=== PATIENT | male | born 1960 | race Caucasian/White ===

== ENCOUNTER 2023-12-13 09:26 | Emergency (ER) | payer OTHER, MEDICARE, SELFPAY ==
[2023-12-13 09:35] VITALS: BP 186/97
--- NOTE | 2023-12-13 11:50 | ED.GENMED ---
History of Present Illness
General
Chief Complaint: Skin Surface Trauma
Source: patient
Exam Limitations: none
Time Seen by Provider: 12/13/23 10:15
Nursing documentation reviewed up to this point in time: agreed with
Travel History
Have you had any contact with someone who has COVID-19?: No
Do you have any symptoms of coronavirus? Fever > 100 degrees, chills, cough, shortness of breath, sore throat, loss of taste or smell, muscle aches, or headache?: No
History of Present Illness
History of Present Illness:
63-year-old presents to the ER for evaluation of laceration to right arm. 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 His tetanus was 3 years ago. He is left-hand dominant. He denies any other
injuries.
Review of Systems
Review of Systems
Allergies reviewed?: Yes
All Other Systems: ROS reviewed and negative except as documented in HPI and ROS
Constitutional: Reports no symptoms; Denies fever, fatigue or chills
EENT: Reports no symptoms
Skin: Reports other (laceration to right arm )
Neurological: Reports no symptoms
Psychiatric: Reports no symptoms
Phy Exam
General Physical Exam
General Presentation: no apparent distress
General age: appears stated age
General Skin: warm and dry
General Habitus: normal
General Mental: alert
General Hydration: appears well hydrated
Neurological Exam
Neurological Exam: alert and oriented x3
Musculoskeletal Exam
Musculoskeletal Exam: other (RUE with strong pulses + v shaped laceration approx 3.5 cm full-thickness into subcutaneous tissue no tendon visible or deficits no bony tenderness no obvious swelling)
Skin Exam
Skin Exam: normal color and warm/dry
Psychiatric Exam
Psychiatric Exam: normal mood/affect
Course
Vital Signs
Initial and Last Documented VS:
Initial Vital Signs
Temp Pulse Resp BP Pulse Ox
98.7 F 85 17 186/97 99
12/13/23 09:35 12/13/23 09:35 12/13/23 09:35 12/13/23 09:35 12/13/23 09:35
Last Documented Vital Signs
Temp Pulse Resp BP Pulse Ox
98.7 F 85 17 186/97 99
12/13/23 09:35 12/13/23 09:35 12/13/23 09:35 12/13/23 09:35 12/13/23 09:35
Procedures
Laceration Closure
Right Dorsal Arm:
Status of Wound: clean
Size of Wound in cm: 3.5
Description of Wound Edges: flap-well vascularized
Preparation: cleaned with saline
Anesthesia: 1% Lidocaine with epi
Revision/Debridement: routine- no revision
Type of Closure: single layer closure and interrupted sutures
Skin Closure Material: 4-0 nylon
Number of sutures: 10
MDM/Problems Addressed
Differential Diagnosis Includes:
Not limited to laceration, tendon injury
MDM/Problems Addressed:
Patient with simple laceration as documented to dorsal aspect of right arm sutured as documented. No tendon deficit no bony tenderness tetanus up-to-date wound care reviewed.
*Critical Care Note
Total Time (30-74mins, 75-104mins- exclusive of procedures): Not Applicable
ED Attending Note
-
Portions of this chart may have been created with voice recognition software.� Occasional wrong word or��sound alike� substitutions may have occurred due to the inherent limitations of voice recognition software.
Discharge Plan
Departure
Patient Disposition: Home (Routine Discharge)
Date of Disposition: 12/13/23
Time of Disposition: 11:53
Patient with high blood pressure during this ER visit?: Yes
Covid-19: Not Applicable
Discharge Problem:
Laceration
Instructions: Laceration Repair With Stitches (DC), BLOOD PRESSURE
Referrals:
Karan Prescott MD [Family Provider] -
Activity Restrictions/Additional Instructions:
Keep wound clean and dry for 24 hours after 24 hours wash twice a day with soap and water apply antibiotic ointment to the area twice daily keep covered. See family doctor in the next 2 days as needed for wound check. Return if any signs
infection increased pain swelling redness drainage fever chills red streaking. Follow-up with family doctor for suture removal in 10 days.
Interventions
Interventions:
*Risk Screen - Suicide Last Done: 12/13/23 09:36
*General Assessment Last Done: 12/13/23 09:36
*Neglect/Abuse Screening Last Done: 12/13/23 09:36
*ED COVID-19 Vaccine History Last Done: 12/13/23 09:36
[2023-12-13 12:16] VITALS: BP 168/74
== END 2023-12-13 12:17 | disposition home or self-care (01) ==
LOC: EMR 09:26
PROVIDERS: EMERGENCY PHYSICIAN Emergency Medicine; FAMILY PHYSICIAN Family Medicine
DX: S41.111A Laceration without foreign body of right upper arm, initial encounter (principal); W45.8XXA Other foreign body or object entering through skin, initial encounter
CPT/HCPCS: 99282; 12002

== ENCOUNTER 2025-06-01 16:54 | Inpatient (IN) | payer OTHER, MEDICARE, SELFPAY ==
[2025-06-01] VITALS (22 sets, daily range): BP systolic 81–176; BP diastolic 66–108; BMI 26.5
--- NOTE | 2025-06-01 14:40 | ED.GENMED ---
History of Present Illness
General
Chief Complaint: Chest Pain
Source: patient
Time Seen by Provider: 06/01/25 14:35
History of Present Illness
History of Present Illness:
64-year-old male presents to the emergency room complaining of a tightness in his chest. Patient has been experiencing this on and off for the past 3 to 4 days. He went to his primary care doctor's office today where they obtained a EKG which they
said was markedly different than his old EKG. Patient states the discomfort seems to come and go without regard to activity. He had stronger discomfort earlier today. Patient does have multiple cardiac risk factors including smoking a pack a day,
hypercholesterolemia, hypertension and diabetes. Patient had some sweating last night which may or may not have been related to his chest discomfort. Otherwise no shortness of breath.
Phy Exam
Physical Exam
Physical Exam:
General: Awake, Alert, Oriented X3. No acute distress.
Vitals: Hypertensive
Head: Atraumatic
Eyes: Pupils equal, EOMI
Throat: Airway intact, no exudates
Neck: Trachea midline
Lungs: Clear and equal b/l
Heart: Regular rate, no murmurs
Abd: Soft, Nontender, No pulsatile mass
Neuro: Nonfocal
Skin: Warm, dry, no rash
Extremities: pulses equal b/l, no edema
Scores
Heart Score for Chest Pain Patients
STEMI patient?: No
History: Highly Suspicious
ECG: Significant ST-Depression
Age: >/= 65 years
Risk Factors: >/= 3 Risk Factors or History of CAD
Troponin: >/= 3 x Normal Limit
Heart Score for Chest Pain Patients: 10
Heart Score Risk: 72.7 % MACE over next 6 weeks
Course
Orders/Labs/Results
Orders:
Orders
06/01/25 14:18
EKG [Electrocardiogram (*1)] Urgent
Reason for Study: Chest Pain
EKG- Treatment ONCE
06/01/25 14:35
Nitroglycerin Sublingual [Nitrostat (Sublingual)] 0.4 mg SL NOW STA
06/01/25 14:42
Complete Blood Count/With Diff Urgent
Comprehensive Metabolic Panel Urgent
Troponin I Urgent
06/01/25 14:45
Heparin 4,000 units IV NOW STA
Heparin 31720 Units/250 ml 25,000 units in 250 ml IV PER PROTOCOL
Weight to be used for heparin protocol in kilograms (kg):: 74.5
Protocol:: Cardiac Tx/Acute Coronary
PTT Goal Range to be used:: PTT 73 to 111 seconds
Order type:: Initial
INITIAL Infusion Dose (UNITS/KG/hr) & then follow protocol:: 15 units/kg/hr
Infusion Dose in UNITS/hr & then follow protocol (UNITS/hr):: 1,100
INFUSION RATE in mL/hr & then follow protocol (mL/hr):: 11
PTT less than or equal to 64 seconds:: Increase rate by 200 units/hr (+ 2 mL/hr)
PTT 64.1 to 72.9 seconds:: Increase rate by 100 units/hr (+ 1 mL/hr)
PTT 73 to 111 seconds:: Target Range. No change in rate.
PTT 111.1 to 130.9 seconds:: Decrease rate by 100 units/hr (- 1 mL/hr)
PTT 131 to 199.9 seconds:: HOLD for 1 hr. Then decrease rate by 200 units/hr (- 2 mL/hr)
PTT greater than or equal to 200 seconds:: HOLD for 2 hrs & Notify Provider. Then decrease by 200 units/hr (-
2 mL/hr)
Lab follow-up:: Each change, PTT q6h until 2 consecutive are therapeutic. Then PTT
daily.
06/01/25 14:[address] Non Medication Order As Directed
Physician Order: PTT 6 hours after initial start of Heparin infusion
Above order entered?: Yes
06/01/25 14:50
PTT Urgent
Comment: Obtain baseline before beginning heparin infusion if not already collected
06/01/25 15:14
CR Chest Portable - 1 View Urgent
Comment:
Reason For Exam: chest pain
Reason Study Needs to be Portable: Patient Unstable
06/01/25 15:45
Admit/Transfer Patient As Directed
Co-Sign Provider:
Level of Care: Inpatient admission
Assign to:: IVU
Physician / Group: Dr. Valentin
Diagnosis: NSTEMI
Reason for Hospitalization: NSTEMI
Expected length of stay greater than two midnights?: Yes
ELOS- Estimated Length of Stay in days: 3
I certify the patient meets the requirements for IP care: Yes
06/01/25 15:47
Code Status As Directed
Resuscitation Status: Full Code
06/01/25 21:15
PTT Routine
Abnormal Lab Results
06/01/25
14:42
MCH 31.5 H pg
(27.0-31.0)
Absolute Monos (auto) 0.7 H 10^3/uL
(0.1-0.6)
Glucose 113 H mg/dl
(70-99)
Troponin I 4.940 H* ng/ml
06/01/25 14:42
06/01/25 14:42
Vital Signs
Initial and Last Documented VS:
Initial Vital Signs
Temp Pulse Resp BP Pulse Ox
98.4 F 78 20 166/96 100
06/01/25 14:18 06/01/25 14:18 06/01/25 14:18 06/01/25 14:18 06/01/25 14:18
Last Documented Vital Signs
Temp Pulse Resp BP Pulse Ox
98 F 59 16 99/66 98
06/01/25 14:46 06/01/25 15:07 06/01/25 15:07 06/01/25 15:07 06/01/25 15:01
MDM/Problems Addressed
Differential Diagnosis Includes:
STEMI, NSTEMI, unstable angina
MDM/Problems Addressed:
Patient presents with intermittent chest pressure that been occurring over the past 3 days. Patient in a more severe episode of chest discomfort earlier today. Currently rates his pain 3 out of 10. Patient's EKG shows significant ST changes
though not quite STEMI criteria. Patient had taken 325 mg of aspirin earlier this morning. He was given a sublingual nitro which caused a vagal response and hypotensive in the diaphoresis. Patient given a bolus of IV fluid and he improved over
the course of a few minutes. Heparin started. I contacted cardiology. Dr. Márquez came to the emergency room promptly to evaluate the patient. He has contacted Dr. Sanches to arrange for an urgent cardiac catheterization.
Acute Exacerbation and/or Progression of Chronic Illness: DM and HTN
*Pulse Oximetry
SaO2: 100
Oxygen Mode of Delivery: Room air
Patient hypoxic: not evaluated
*EKG
Interpreted by ED Provider?: Yes
Interpretation: abnormal
Comparison EKG: no comparison EKG present
Heart Rate: 73
Rate: normal
Rhythm: sinus
Ischemia: other (Biphasic T waves V3, V4, V5, T wave inversion in aVR)
*Basket Hand Weaver Interpretation
Rate: normal
Interpretation: normal
Rhythm: sinus
*Critical Care Note
Total Time (30-74mins, 75-104mins- exclusive of procedures): 37 min
ED Attending Note
-
Portions of this chart may have been created with voice recognition software.� Occasional wrong word or��sound alike� substitutions may have occurred due to the inherent limitations of voice recognition software.
Discharge Plan
Departure
Patient Disposition: Admit
Date of Disposition: 06/01/25
Time of Disposition: 15:10
Admit to: [facility]
Presentation/result/management discussed w/ accepting MD/DO: Dr. Galvan
Condition: Serious
Discharge Problem:
Non-ST elevation DC (NSTEMI)
Prescriptions:
No Action
metformin 500 mg Tablet
500 mg PO DAILY
tramadol 50 mg Tablet
100 mg PO Q6HPRN PRN (Reason: moderate pains)
ezetimibe [Zetia] 10 mg Tablet
10 mg PO DAILY
hydrochlorothiazide 12.5 mg Tablet
12.5 mg PO DAILY
Interventions
Interventions:
*Risk Screen - Suicide Last Done: 06/01/25 14:18
*General Assessment Last Done: 06/01/25 15:00
*Neglect/Abuse Screening Last Done: 06/01/25 14:18
*ED- Fall Risk Assessment Last Done: 06/01/25 14:46
*ED COVID-19 Vaccine History Last Done: 06/01/25 14:46
ED- Cardiac Assessment Last Done: 06/01/25 14:47
Discharge Date and Time
Print Language: OCCITAN
[2025-06-01] MEDS: NITROSTAT (SUBLINGUAL) 0.4 MG SL (14:54)
[2025-06-01 15:01] LABS: Hematocrit 43.3 % (39.0-52.0); Hemoglobin 15.1 g/dL (13.0-18.0); Mean Corp Hgb Conc. 34.9 g/dL (33.0-37.0); Mean Corpuscular Volume 90.4 fL (80.0-94.0); Nucleated Red Blood Cells % 0 % (-); Platelet Count 288 10^3/uL (130-400); Red Cell Dist. Width 12.8 % (11.5-14.5)
[2025-06-01 15:08] LABS: ALT (SGPT) 29 U/L (0-50); AST (SGOT) 51 U/L (17-59); Albumin 4.9 g/dl (3.5-5.0); Alkaline Phosphatase 72 U/L (38-126); Blood Urea Nitrogen 16 mg/dl (9-20); Calcium 9.5 mg/dl (8.4-10.2); Carbon Dioxide 28 mmol/L (22-30); Chloride 106 mmol/L (98-107); Estimated Creatinine Clearance 66 ml/min; Glucose 113 mg/dl (70-99); Potassium 4.1 mmol/L (3.5-5.1); Sodium 138 mmol/L (135-145); Total Protein 8.0 g/dl (6.3-8.2); eGFR > 60.00
[2025-06-01 15:11] LABS: APTT 30.0 Sec (23.4-35.0)
[2025-06-01] MEDS: HEPARIN 4000 UNITS IV (15:13)
[2025-06-01] MEDS: HEPARIN 25000 UNITS/250 ML IV (15:14)
[2025-06-01 15:38] LABS: Troponin I 4.940 ng/ml
--- NOTE | 2025-06-01 16:06 | HPS.HSE ---
Addendum entered and electronically signed by Ousmane Valentin MD 06/01/25 17:48:
Patient seen and examined in collaboration with TOLL COLLECTOR SUPERVISOR; agree with below.
- 64-year-old male with hypertension, hyperlipidemia, diabetes, and chronic continued cigarette use, and family history of CAD presenting with acute chest pain with anterior T wave abnormality.
- Patient's presentation is consistent with ACS; cardiac enzymes just resulted, and patient has a troponin of 4.8--NSTEMI.
- The patient will undergo urgent cardiac catheterization today.
- Heparin bolus and heparin drip being initiated in the ER.
- Patient has received full-dose aspirin.
- The patient had a vasovagal event after receiving nitroglycerin; will hold an additional nitroglycerin.
- Case discussed with Interventional Cardiology.
- Patient will be admitted to the cardiology service.
- Check lipid panel and hemoglobin A1c in the a.m.
Original Note:
Family Physician
-
Family Physician: Dr. Prescott
Chief Complaint
-
chest pain
History of Present Illness
64 y/o male with HTN, HLD, preDM, and smoking who is here for intermittent chest pressure for 3 days. In the ER he had chest pressure, which resolved with nitro, but nitro resulted in vagal response with BP drop. IVF given. His troponin was 4.94.
EKG is abnormal with anterior ST/T abnormality.
Medical History
Past Medical History
Past Medical History: Reports HTN, Hypercholesterolemia and Other (as above)
Past Surgical History: Reports None
Social History
Tobacco: Smoker (1 PPPD)
Personal:
Living: With Family
Family History
Family History: CAD (dad stents around this age)
Allergies / Home Medications
Allergies reflects when Allergies were last updated in [facility].
Home Medications with original date entered in [facility]
Allergy/Medication List:
Allergies:
none known
Medications:
-zetia 10 mg PO daily
-HCTZ 12.5 mg PO daily
-metformin 500 mg PO daily
-tramadol 100 mg PO Q6 HPRN
Review of Systems
-
History Source: Patient
A 12 point ROS was completed and negative except as noted: Yes
Cardiac: Reports Chest Pain
Physical Exam
Vital Signs
Vital Signs
Temp Pulse Resp BP Pulse Ox
98 F 59 16 99/66 98
06/01/25 14:46 06/01/25 15:07 06/01/25 15:07 06/01/25 15:07 06/01/25 15:01
Physical Exam
General: Well Developed, Well Nourished and No Apparent Distress
HEENT: NormoCephalic and Anicteric
Respiratory: Clear and Non Labored Respirations
Cardiac: Regular Rhythm
Skin: Warm and Dry
Neuro: AO x 3
Psych: Calm
Laboratory Results
-
06/01/25 14:42
06/01/25 14:42
Laboratory Results
APTT 30.0 Sec (23.4-35.0) 06/01/25 14:50
Total Bilirubin 0.7 mg/dl (0.2-1.3) 06/01/25 14:42
AST 51 U/L (17-59) 06/01/25 14:42
ALT 29 U/L (0-50) 06/01/25 14:42
Alkaline Phosphatase 72 U/L (38-126) 06/01/25 14:42
Troponin I 4.940 ng/ml H* 06/01/25 14:42
Data Reviewed
-
Medical Tests (Nuc Med, Echo, EKG etc): Image Personally Visualized and interpreted (SR with anteruir ST/T abnormalities) and Other (echo is ordered)
Lab Data: Labs Reviewed by me
Impression/Plan
-
IMPRESSION/PLAN:
NSTEMI:
-this diagnosis is threat to life
-IV heparin, which requires intensive monitoring
-CP free presently. greens laborer today- discussed with patient.
-He took full dose aspirin this AM- continue daily aspirin
-add statin
-follow EKGs and troponins
-check lipids and hgbA1C
-obtain echo
HTN:
-continue home meds and monitor
HLD:
-had issue with simvastatin in the past, back pain. Willing to retrial statin. Will add Crestor. Can continue his usual Zetia. Check lipids.
Smoking:
-we reviewed that he requires total cessation
PreDM:
-hold metformin for cath
-check hgb A1C
Chronic neck pain:
-continue PRN tramadol
--- NOTE | 2025-06-01 16:14 | CM ---
Patient seen at bedside in ED. Per nursing patient for cardiac cath today. Patient states that he lives with his and daughter in a 2 story home. Patient stated that he does not have any DME and his PCP is Dr. Prescott. Patient uses [facility] in
[place] for pharmacy needs. Patient plan is to go home with no needs. CM will continue to follow for discharge planning needs.
Plan; home with no needs watch for VN needs.
[2025-06-01 18:30] LABS: ACT-LR - POC 322 Seconds (116-155)
--- NOTE | 2025-06-01 18:55 | ITS.CL.ANGIO ---
Software Client Architect - Angioplasty
Angioplasty
Procedure Report:
CARDIAC CATHETERIZATION REPORT
Date of Procedure: 06/01/2025
Referring: Ousmane Valentin M.D.
INDICATION: Non-ST elevation myocardial infarction.
PROCEDURE:
1. Left heart catheterization.
2. Coronary angiography.
3. Successful IVUS guided PCI of the mid and distal LAD.
4. Successful PCI of the distal circumflex.
A total of 87 minutes of procedural/moderate sedation was utilized. An independent medical supply technician was present to assist with and help manage the patient's level of consciousness and physiologic status.
ACCESS:
1. 6 [place] right rate artery using a modified Seldinger technique.
CATHETERS:
1. 5 [place] JR4.
2. 5 [place] JL 3.5.
3. 6 [place] EBU 3.5 guiding catheter.
HEMODYNAMIC DATA
Weight (kg): 74.4
AO (s/d/x, mmHg): 118/71/90
LV (s/x mmHg): 118/5
LEFT VENTRICULOGRAPHY: Not performed.
CORONARY ANGIOGRAPHY
Dominance: Right.
Left Main: Normal size, bifurcating vessel. There is no coronary artery disease.
LAD: Smaller size vessel giving rise to 2 small diagonals. There is some atherosclerotic burden in the ostium of the vessel. There is a 70% lesion in the mid LAD after the origin of the master septal. There is a group of 90% lesions spanning
the origin of the second diagonal leading into a small terminal LAD.
Ramus: Congenitally absent.
Circumflex: Large size, nondominant vessel giving rise to 1 large obtuse marginal before terminating as a left posterolateral arcade. There is a 60% lesion in the distal circumflex immediately after the origin of the obtuse marginal. There is an
underappreciated 70-80% lesion distal to that first lesion but proximal to the posterolateral arcade.
RCA: Large size, dominant vessel with a large RPDA system and posterolateral arcade. The RPDA supplies the majority of the inferior wall and inferior septum as well as the apex. There are tandem 70-80% lesions in the proximal RCA and mid RCA.
INTERVENTION(S)
1. Successful IVUS guided PCI of the group of 90% distal LAD lesions and the 70% mid LAD lesion (overlapping Medtronic [place] Thayer 2.25 x 34 KRISS and 2.5 x 22 KRISS, postdilated with a 2.25 NC balloon throughout, a 2.5 NC balloon throughout and a
3.0 x 12 NC balloon in the proximal margin) with reduction in stenoses to 0%, maintaining EMILY-3 flow.
2. Successful PCI of the tandem 60% and 70-80% distal circumflex lesions (Medtronic [place] Thayer 3.0 x 34 KRISS, postdilated with a 3.0 NC balloon) with reduction in stenoses to 0%, maintaining EMILY-3 flow.
Narrative:
After thoughtful and thorough discussion with interventional colleagues as well as CT surgery, the decision was made to proceed with percutaneous coronary intervention as there was deemed to be no benefit to a ENRIQUEZ graft given the small size of the
LAD and corresponding territory. The diagnostic catheter was removed over a wire and a 6Fr EBU 3.5 guiding catheter was advanced to the aortic root and seated in the left main coronary artery. Additional heparin was given and a Power Turn Flex wire
was advanced into the distal LAD. The group of 90% lesions were predilated with a 2.0 x 12 semi-compliant balloon to 12 randy. The semi-compliant balloon was removed and a Medtronic [place] Thayer 2.25 x 34 drug-eluting stent was advanced. The stent
was deployed at 12 atmospheres. The stent balloon was removed.
We then turned our attention to the mid LAD lesion. A Medtronic [place] Thayer 2.5 x 22 drug-eluting stent was advanced. Meticulous care was taken while positioning the stent, ensuring that the distal aspect overlapped with the recently placed
stent in the proximal margin cover the entire mid LAD lesion. We were satisfied with our position. The stent was deployed at 12 randy. The stent balloon was withdrawn.
The decision was made to perform intracoronary imaging. An IVUS catheter was advanced through the guiding catheter and into the ostium of the artery. Ring down was performed once the imaging crystal was no longer inside of the guiding catheter. The
IVUS catheter was advanced into the distal LAD, beyond the stented segment. Intravascular ultrasound was performed in a retrograde fashion using a slow pullback. Intracoronary imaging demonstrated diffuse atherosclerotic disease throughout the
entire coronary tree including underappreciated proximal and ostial LAD disease, though not culprit. Vessel measurements including stent measurements were obtained. IVUS confirmed stent apposition throughout the entire segment with some
underexpansion.
The IVUS catheter was withdrawn. A 2.25 x 20 noncompliant balloon was advanced into the distal stent and the entire stent length was was postdilated to 16 atmospheres, 18 randy in the proximal margin. The noncompliant balloon was withdrawn and a 2.5
x 20 noncompliant balloon was advanced. The mid and proximal portions of the stent were postdilated to 12 randy and 14 randy respectively. The noncompliant balloon was withdrawn. A 3.0 x 12 noncompliant balloon was advanced. The proximal margin of
the stented segment was dilated to 12 randy. The noncompliant balloon was withdrawn and IVUS was repeated. This demonstrated excellent stent apposition and improved expansion throughout the entire stented segment.
We then turned our attention to the left circumflex. The power turn flex wire was withdrawn and redirected into the distal circumflex. The distal circumflex lesions were both dilated with the 2.5 x 20 noncompliant balloon. A Medtronic [place]esar
Thayer 3.0 x 34 drug-eluting stent was advanced. Angiography confirmed that the stent would cover both lesions and was deployed at 12 randy. The stent balloon was withdrawn and a 3.0 x 12 noncompliant balloon was advanced. The entire stented
segment was postdilated to 12 randy, 14 randy in the proximal margin. The noncompliant balloon was withdrawn.
Angiography was performed in orthogonal views, confirming good stent expansion throughout. There was an area of radiolucency and haziness in the proximal LAD stent margin that was not previously appreciated. The decision was made to repeat IVUS in
this area. The power turn flex wire was withdrawn from the left circumflex and redirected into the LAD. The IVUS catheter was readvanced and IVUS was performed in the questionable area. IVUS demonstrated no evidence of dissection or plaque
disruption. The area of haziness appeared to be related to a piece of calcium on the lateral aspect of the vessel and did not represent intimal disruption.
The IVUS catheter was withdrawn. Nitroglycerin 100 mcg was given intracoronary. Repeat angiography was performed, demonstrating good stent expansion and apposition throughout the entire stented segments with an excellent angiographic result.
The coronary wire was withdrawn and the guide was disengaged from the artery. The catheter was removed over a standard J-wire.
Closure Device: Vascular band.
Radiation (mGy): 823
DAP (cm2.Gy): 32.7
Fluoroscopy time (minutes): 19.3
CONCLUSIONS
1. Right dominant circulation with severe, multivessel disease including tandem 70-80% lesions in the proximal and mid RCA, a 60% lesion in the distal circumflex followed by an underappreciated 70-80% lesion in the distal circumflex, a 70% mid LAD
lesion and a group of 90% lesions spanning the origin of the second diagonal and leading into a small, terminal LAD, not a candidate for surgical revascularization, status post successful IVUS guided PCI of the mid and distal LAD lesions
(overlapping Medtronic [place] Thayer 2.25 x 34 KRISS, 2.5 x 22 KRISS, postdilated with a 2.25 and 2.5 NC balloon throughout and a 3.0 x 12 NC balloon in the proximal margin) and successful PCI of the tandem distal circumflex lesions (Medtronic [place]
Thayer 3.0 x 34 KRISS, postdilated with a 3.0 NC balloon) with reduction in stenoses to 0%, maintaining EMILY-3 flow.
2. Normal filling pressures (LVEDP = 5 mmHg at 74.4 kg).
RECOMMENDATIONS:
1. Expectant management after cardiac catheterization via right radial approach.
2. Limited weight bearing on the right wrist for one week.
3. Dual antiplatelet therapy with aspirin and ticagrelor for at least 12 months, followed by aspirin indefinitely.
4. Plan for staged PCI of the proximal and mid right coronary artery lesions.
5. OMT/GDMT as hemodynamics will tolerate.
6. Aggressive secondary prevention with high-dose, high potency statin. Goal LDL <55.
7. Echocardiogram ordered and pending.
8. Referral to cardiac rehab, though this may be deferred until his revascularization is complete.
Copy to: Karan Prescott M.D., Ousmane Valentin M.D.
Tl Boss DO, FACC, FACP
[2025-06-01 19:37] LABS: Troponin I 3.160 ng/ml
[2025-06-01] MEDS: CRESTOR 20 MG PO (20:37)
[2025-06-01 21:23] LABS: Glucose - Point of Care 125 mg/dl (70-99)
[2025-06-01 23:50] LABS: Troponin I 3.610 ng/ml
--- NOTE | 2025-06-02 01:21 | PTCARENOTE ---
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 Pt AAOx3, VSS-- NSR/SB on monitor. Denies c/p @ this time. Right radial band intact w/ 8 mL of air. Site clean, dry, and intact. Little ecchymosis present, no hematoma. Radial band removed per protocol with no
issues-- see MAR. Discussed plan of care for evening. Pt verbalizes understanding. Call ty within reach.
[2025-06-02 05:08] VITALS: BP 132/71
[2025-06-02 05:30] LABS: Hematocrit 37.8 % (39.0-52.0); Hemoglobin 13.4 g/dL (13.0-18.0); Mean Corp Hgb Conc. 35.4 g/dL (33.0-37.0); Mean Corpuscular Volume 89.4 fL (80.0-94.0); Platelet Count 251 10^3/uL (130-400); Red Cell Dist. Width 13.1 % (11.5-14.5)
[2025-06-02 05:55] LABS: Blood Urea Nitrogen 16 mg/dl (9-20); Calcium 8.8 mg/dl (8.4-10.2); Carbon Dioxide 24 mmol/L (22-30); Chloride 107 mmol/L (98-107); Estimated Creatinine Clearance 73 ml/min; Glucose 133 mg/dl (70-99); HDL Cholesterol 35 mg/dl; LDL Cholesterol, Calculated 182 mg/dl; Potassium 3.9 mmol/L (3.5-5.1); Sodium 137 mmol/L (135-145); Very Low Density Lipoprotein 47 mg/dl (0-30); eGFR > 60.00
[2025-06-02 06:14] LABS: Troponin I 3.450 ng/ml
[2025-06-02 06:56] VITALS: BP 129/78
[2025-06-02 07:39] LABS: Glucose - Point of Care 147 mg/dl (70-99)
[2025-06-02 07:40] LABS: Glycohemoglobin (HgbA1c) 6.2 % (4.0-5.6)
--- NOTE | 2025-06-02 08:45 | W.PN.CD ---
Today's Communication / Plan
-
DAPT.
Echo.
Rosuvastatin 20 mg daily. Goal LDL < 55.
Resume metformin tomorrow.
Plan for staged PCI of RCA (mid-June).
Impression / Plan
-
Impression/Plan: 64 y/o male with HTN, HLD, NIDDM and tobacco abuse admitted with NSTEMI.
#CAD/NSTEMI
-Acute/threat to life.
-Troponin peaked at 4.9.
-Small LAD without options for surgical revascularization prompted percutaneous approach. Discussed with surgery prior to PCI.
-S/P IVUS guided PCI of culprit dLAD and mLAD (overlapping Medtronic [place] Bibb 2.25 x 34 KRISS, 2.5 x 22 KRISS, post dilated with 2.25 NCB throughout, 2.5 NCB in the mid/proximal stent and 3.0 x 12 NCB in the proximal margin) with reduction in
stenosis to 0%, maintaining EMILY III flow.
-S/P PCI of tandem 60-70% and 80% dLCx lesions (Medtronic Cesar Bibb 3.0 x 34 KRISS, post dilated with 3.0 NCB) with reduction in stenosis to 0%, maintaining EMILY III flow.
-Residual proximal LAD disease (likely non-obstructive) and obstructive proximal/mid RCA disease remain. Staged PCI of RCA planned.f
-Maintain DAPT with aspirin and ticagrelor for at least 12 months.
-Echocardiogram pending.
-OMT/GDMT as hemodynamics will tolerate.
-Secondary prevention with high dose, high potency statin. Goal LDL < 55.
#HTN
-Chrnoic, stable.
-Resume HCTZ.
-BP medication modification based on echo results.
#HLD
-Chronic.
-Total cholesterol = 264, LDL = 182, HDL = 35, Triglycerides = 237.
-Rosuvastatin 20 mg daily. Goal LDL < 55. Goal triglycerides < 150.
#NIDDM2
-Chronic.
-HbA1c pending.
-Resume metformin tomorrow
-There is a role for GLP1 analogs at discharge (DM + ASCVD).
#Tobacco abuse
-Chronic.
-Encouraged absolute abstinence.
#PPx
-Ambulation/SCD's for DVT/VTE.
-No role for PPI at this time.
#Dispo
-IVU status.
-Full code.
-Begin discharge planning (likely tomorrow) with intent to return to general production laborer for staged PCI of RCA as an outpatient.
Subjective/Interval History:
S/P PCI of culprit LAD, non-culprit LCx yestserday.
No chest pain overnight.
Feels well.
DATA:
Cardiac Catheterization/PCI, 06/01/2025:
CONCLUSIONS
1. Right dominant circulation with severe, multivessel disease including tandem 70-80% lesions in the proximal and mid RCA, a 60% lesion in the distal circumflex followed by an underappreciated 70-80% lesion in the distal circumflex, a 70% mid LAD
lesion and a group of 90% lesions spanning the origin of the second diagonal and leading into a small, terminal LAD, not a candidate for surgical revascularization, status post successful IVUS guided PCI of the mid and distal LAD lesions
(overlapping Medtronic Her[place] Bibb 2.25 x 34 KRISS, 2.5 x 22 KRISS, postdilated with a 2.25 and 2.5 NC balloon throughout and a 3.0 x 12 NC balloon in the proximal margin) and successful PCI of the tandem distal circumflex lesions (Medtronic Cesar
Bibb 3.0 x 34 KRISS, postdilated with a 3.0 NC balloon) with reduction in stenoses to 0%, maintaining EMILY-3 flow.
2. Normal filling pressures (LVEDP = 5 mmHg at 74.4 kg).
Physical Exam
Vital Signs/Labs
Vital Signs
Temp Pulse Resp BP Pulse Ox
37.1 C 61 18 129/78 95
06/02/25 06:56 06/02/25 07:15 06/02/25 06:56 06/02/25 06:56 06/02/25 08:27
05/31/25 06/01/25 06/02/25
11:59 11:59 11:59
Actual Weight 74.5 kg
06/02/25 05:15
06/02/25 05:15
APTT Cancelled 06/01/25 23:00
Triglycerides 237 mg/dl (10-149) H 06/02/25 05:15
LDL Cholesterol, Calc 182 mg/dl 06/02/25 05:15
VLDL Cholesterol, Calc 47 mg/dl (0-30) H 06/02/25 05:15
HDL Cholesterol 35 mg/dl 06/02/25 05:15
LAB Results
06/01/25 06/01/25 06/01/25
14:42 18:56 23:14
Troponin I 4.940 H* 3.160 H* D 3.610 H*
06/02/25
05:15
Troponin I 3.450 H*
Physical Exam
Constitutional: No acute distress and Comfortable
EENT: Anicteric and Moist mucous membranes
Cardiovascular: Rhythm & rate is regular, Pedal edema is absent, JVD pressure is normal, S1S2 is normal and Murmur/rub/gallop absent
Respiratory: Respiratory effort normal, Lungs clear to auscul., Wheeze Absent, Crackles Absent and Rhonchi Absent
GI: Soft, Distention absent, Flat, Non tender and Normal bowel sounds
Neuro/Psych: AO x 3
Other: Cath Site (Right radial access site is C/D/I.)
Data Reviewed
-
Date of Service: June 02, 2025
Medical Decision Making: Reviewed Test Results, Independent Historian Assessment and Test Interpretation
EKG: Tracing Personally Visualized and interpreted and Report Reviewed by me
Echo: Ordered by me
X-Ray/CT/US/MRI/NUC/PET: Image Personally Visualized and interpreted and Report Reviewed by me
Medical Tests (PFT, Pathology etc): Image Personally Visualized and interpreted and Report Reviewed by me
Labs: Labs Reviewed by me
[2025-06-02] MEDS: ORETIC 12.5 MG PO (09:33)
[2025-06-02] MEDS: BRILINTA 90 MG PO ×2 (09:33→20:27)
[2025-06-02] MEDS: ZETIA 10 MG PO (09:34)
[2025-06-02] MEDS: LOW STRENGTH ASPIRIN 81 MG PO (09:34)
[2025-06-02] MEDS: ULTRAM 100 MG PO ×2 (09:36→18:00)
[2025-06-02] MEDS: NICODERM TRANSDERMAL 14 MG TRANSDERM (09:44)
--- NOTE | 2025-06-02 11:26 | CM ---
Priced Brilinta thru insurance. Estimated cost of Brilinta would be $37.04/mo.
Call to [facility] pharmacy, medication not in stock.
Call to [facility] in [place]-exactly 60 pills avail. TT to [facility] to send RX electronically today.
Met w/ patient + family at bedside. All agreeable to cost and agreeable to orange picker RX @ [facility].
--- NOTE | 2025-06-02 11:28 | CM ---
CM following for DC planning needs.
Met w/ patient, spouse, dtr. at bedside. Reviewed initial assessment. Pt. resides w/ spouse, dtr. in a private, [facility]. Functionally, patient is indep. prior to admission w/ ADLs, mobility.
Antic. DC plan is for home, no needs.
CM to follow.
[2025-06-02 12:09] VITALS: BP 140/75
[2025-06-02 12:12] VITALS: BMI 29.2
[2025-06-02 13:05] LABS: Glucose - Point of Care 125 mg/dl (70-99)
[2025-06-02] MEDS: NOVOLOG FLEXPEN-MODERATE RESISTANCE SC (13:22)
[2025-06-02] MEDS: TOPROL XL 12.5 MG PO (13:22)
[2025-06-02 16:09] VITALS: BP 120/67
[2025-06-02 17:56] LABS: Glucose - Point of Care 166 mg/dl (70-99)
[2025-06-02] MEDS: CRESTOR 20 MG PO (18:00)
[2025-06-02] MEDS: NOVOLOG FLEXPEN-MODERATE RESISTANCE 1 UNITS SC (18:02)
--- NOTE | 2025-06-02 18:14 | PTCARENOTE ---
Pt denies any chest pressure, given tramadol X 2 doses for chronic left knee and back pain. Pt up in his room, otherwise resting. Telemetry shows sinus rhythm. Pt learning about his new medications and health issues, will reinforce.
[2025-06-02 18:33] VITALS: BP 127/65
--- NOTE | 2025-06-02 21:25 | PTCARENOTE ---
Patient received at change of shift resting in the bed. Right radial cath site with gauze and tegaderm C/D/I. Radial pulse palpable. Denies chest pain at this time. Reports chronic left knee pain from a torn meniscus. Sinus rhythm on telemetry.
Oxygen saturation on room air 97-98%. Ambulating independently in the halls. Plan of care discussed. Call ty within reach. Care ongoing.
[2025-06-02 22:03] LABS: Glucose - Point of Care 101 mg/dl (70-99)
[2025-06-02 22:44] VITALS: BP 110/76
[2025-06-02] MEDS: REMOVE NICOTINE PATCH 1 PATCH REMOVE (22:45)
[2025-06-03 03:23] VITALS: BP 108/62
[2025-06-03 07:23] VITALS: BP 115/78
[2025-06-03] MEDS: NOVOLOG FLEXPEN-MODERATE RESISTANCE SC (07:27)
[2025-06-03] MEDS: ORETIC 12.5 MG PO (07:27)
[2025-06-03] MEDS: BRILINTA 90 MG PO (07:27)
[2025-06-03] MEDS: TOPROL XL 12.5 MG PO (07:27)
[2025-06-03] MEDS: LOW STRENGTH ASPIRIN 81 MG PO (07:27)
[2025-06-03 07:28] LABS: Glucose - Point of Care 129 mg/dl (70-99)
[2025-06-03] MEDS: NICODERM TRANSDERMAL 14 MG TRANSDERM (07:28)
[2025-06-03] MEDS: ZETIA 10 MG PO (07:28)
--- NOTE | 2025-06-03 08:38 | W.PN.CD ---
Addendum entered and electronically signed by Brian Rader MD 06/03/25 12:52:
I saw and examined the patient.
The PAINTER MAINTENANCE's note was reviewed and I agree with the note.
Comment: Patient seen prior to hospital discharge earlier this morning. All questions answered. Plans outlined. Importance of medication adherence were reviewed with the patient. Follow-up arranged. Ready for home. Cardiac catheterization site is
very good.
Original Note:
Today's Communication / Plan
-
stable for d/c home today
Impression / Plan
-
Impression/Plan: 64 y/o male with HTN, HLD, NIDDM and tobacco abuse admitted with NSTEMI.
#CAD/NSTEMI
-Acute/threat to life.
-Troponin peaked at 4.9.
-Small LAD without options for surgical revascularization prompted percutaneous approach. Discussed with surgery prior to PCI.
-S/P IVUS guided PCI of culprit dLAD and mLAD (overlapping Medtronic [place] 2.25 x 34 KRISS, 2.5 x 22 KRISS, post dilated with 2.25 NCB throughout, 2.5 NCB in the mid/proximal stent and 3.0 x 12 NCB in the proximal margin) with reduction in
stenosis to 0%, maintaining EMILY III flow.
-S/P PCI of tandem 60-70% and 80% dLCx lesions (Medtronic [place] 3.0 x 34 KRISS, post dilated with 3.0 NCB) with reduction in stenosis to 0%, maintaining EMILY III flow.
-Residual proximal LAD disease (likely non-obstructive) and obstructive proximal/mid RCA disease remain. Staged PCI of RCA planned.
-Maintain DAPT with aspirin and ticagrelor for at least 12 months.
-Echocardiogram 06/02/25 with EF 55%, LAD wall motion changes (mild to mod HK of mid anterior, mid anteroseptal and most of the apex-apical anterior, inferior and lateral apex), no sig valve disease.
-Will add Lisinopril 5mg daily due to significant LAD WMA as he is at risk of adverse remodeling.
-OMT/GDMT as hemodynamics will tolerate.
-Secondary prevention with high dose, high potency statin. Goal LDL < 55.
#HTN
-Chronic, stable.
-D/C HCTZ and start Lisinopril 5mg daily as above.
#HLD
-Chronic.
-Total cholesterol = 264, LDL = 182, HDL = 35, Triglycerides = 237.
-Rosuvastatin 20 mg daily. Goal LDL < 55. Goal triglycerides < 150.
-Will need outpatient f/u lipids in 3 months.
#NIDDM2
-Chronic.
-HbA1c 6.2%.
-Resume metformin at d/c.
-There is a role for GLP1 analogs (DM + ASCVD), will discuss further as an outpatient.
#Tobacco abuse
-Chronic.
-Encouraged absolute abstinence.
#PPx
-Ambulation/SCD's for DVT/VTE.
-No role for PPI at this time.
#Dispo
-IVU status.
-Full code.
-Discharge home today with intent to return to cardiac cath technician for staged PCI of RCA as an outpatient.
Subjective/Interval History:
S/P PCI of culprit LAD, non-culprit LCx 06/01/25.
No chest pain overnight.
Feels well.
DATA:
Cardiac Catheterization/PCI, 06/01/2025:
CONCLUSIONS
1. Right dominant circulation with severe, multivessel disease including tandem 70-80% lesions in the proximal and mid RCA, a 60% lesion in the distal circumflex followed by an underappreciated 70-80% lesion in the distal circumflex, a 70% mid LAD
lesion and a group of 90% lesions spanning the origin of the second diagonal and leading into a small, terminal LAD, not a candidate for surgical revascularization, status post successful IVUS guided PCI of the mid and distal LAD lesions
(overlapping Medtronic [place] 2.25 x 34 KRISS, 2.5 x 22 KRISS, postdilated with a 2.25 and 2.5 NC balloon throughout and a 3.0 x 12 NC balloon in the proximal margin) and successful PCI of the tandem distal circumflex lesions (Medtronic Cesar
Young 3.0 x 34 KRISS, postdilated with a 3.0 NC balloon) with reduction in stenoses to 0%, maintaining EMILY-3 flow.
2. Normal filling pressures (LVEDP = 5 mmHg at 74.4 kg).
Physical Exam
Vital Signs/Labs
Vital Signs
Temp Pulse Resp BP Pulse Ox
98.8 F 62 18 115/78 98
06/03/25 07:23 06/03/25 07:27 06/03/25 07:23 06/03/25 07:27 06/03/25 07:23
06/02/25 06/03/25 06/04/25
06:59 06:59 06:59
Actual Weight 164 lb 3.91 oz 159 lb 6.307 oz
06/02/25 05:15
06/02/25 05:15
APTT Cancelled 06/01/25 23:00
Triglycerides 237 mg/dl (10-149) H 06/02/25 05:15
LDL Cholesterol, Calc 182 mg/dl 06/02/25 05:15
VLDL Cholesterol, Calc 47 mg/dl (0-30) H 06/02/25 05:15
HDL Cholesterol 35 mg/dl 06/02/25 05:15
LAB Results
06/01/25 06/01/25 06/01/25
14:42 18:56 23:14
Troponin I 4.940 H* 3.160 H* D 3.610 H*
06/02/25
05:15
Troponin I 3.450 H*
Physical Exam
Constitutional: No acute distress and Comfortable
EENT: Anicteric and Moist mucous membranes
Cardiovascular: Rhythm & rate is regular
Respiratory: Respiratory effort normal and Lungs clear to auscul.
GI: Soft and Normal bowel sounds
Neuro/Psych: AO x 3
Other: Cath Site (stable w/o hematoma)
Data Reviewed
-
Date of Service: June 03, 2025
Medical Decision Making: Reviewed Test Results
EKG: Tracing Personally Visualized and interpreted
Echo: Report Reviewed by me
Labs: Labs Reviewed by me
--- NOTE | 2025-06-03 08:57 | W.DS.TRANS ---
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
-
Discharge Instructions:
Discharge Diagnosis/Procedures Angioplasty with stent to LAD and LCx arteries
Diet Low Cholesterol,Diabetic, Carb Controlled
Driving Restrictions No driving for 24 hours
Others Tests You will return for stent of right coronary
artery in June, the office will call you with
date
Other Services Cardiac Rehab
Instructions:
Stand-Alone Forms: DC Instructions- Cath/EP Lab
Changes to Home Medications: Yes
Discharge Medications:
DC Medications w/original date entered in [place]
ezetimibe 10 mg tablet (Zetia) 10 mg PO DAILY 06/01/25
metformin 500 mg tablet 500 mg PO DAILY 06/01/25
tramadol 50 mg tablet 100 mg PO Q6HPRN PRN moderate pains 06/01/25
aspirin 81 mg chewable tablet 81 mg PO DAILY #1 tab 06/02/25
metoprolol succinate 25 mg tablet,extended release 24 hr 12.5 mg (1/2 x 25 mg) PO DAILY #9 tabs 06/02/25
rosuvastatin 20 mg tablet 20 mg PO QPM #90 tabs 06/02/25
ticagrelor 90 mg tablet (Brilinta) 90 mg PO BID #60 tabs 06/02/25
lisinopril 5 mg tablet 5 mg PO DAILY Heart disease/condition #30 tabs 06/03/25
Home Medication Changes
HCTZ stopped.
Lisinopril, Brilinta, ASA, Toprol and Crestor are new.
Pending Results: No
[2025-06-03 09:33] VITALS: BP 113/71
[2025-06-05 13:20] LABS: ACT-LR - POC 380 Seconds (116-155)
[2025-06-05 13:20] LABS: ACT-LR - POC > 397 Seconds (116-155)
== END 2025-06-03 11:08 | disposition home or self-care (01) | DRG 322 ==
LOC: IVU 16:54
PROVIDERS: Internal Medicine Cardiovascular Disease; Nurse Practitioner; Nurse Practitioner Adult Health; Student in an Organized Health Care Education/Training Program; ADMITTING PHYSICIAN Internal Medicine; EMERGENCY PHYSICIAN Emergency Medicine
PROC: B2111ZZ Fluoroscopy of Multiple Coronary Arteries using Low Osmolar Contrast (ICD-10-PCS; 2025-06-01)
PROC: 4A023N7 Measurement of Cardiac Sampling and Pressure, Left Heart, Percutaneous Approach (ICD-10-PCS; 2025-06-01)
PROC: B240ZZ3 Ultrasonography of Single Coronary Artery, Intravascular (ICD-10-PCS; 2025-06-01)
PROC: 027136Z Dilation of Coronary Artery, Two Arteries with Three Drug-eluting Intraluminal Devices, Percutaneous Approach (ICD-10-PCS; 2025-06-01)
DX: I21.4 Non-ST elevation (NSTEMI) myocardial infarction (principal); I25.10 Atherosclerotic heart disease of native coronary artery without angina pectoris; I10 Essential (primary) hypertension; E78.00 Pure hypercholesterolemia, unspecified; E11.9 Type 2 diabetes mellitus without complications; I95.9 Hypotension, unspecified; F17.210 Nicotine dependence, cigarettes, uncomplicated; G89.29 Other chronic pain; M54.2 Cervicalgia; Z82.49 Family history of ischemic heart disease and other diseases of the circulatory system
CPT/HCPCS: 71045; 80048; 80053; 80061; 82962; 83036; 84484; 85025; 85027; 85347; 85730; 92978; 93005; 93306; 93458; 96365; 96366; 99152; 99153; 99291; 99406; C1725; C1753; C1769; C1874; C1894; C9600; Q9967

== ENCOUNTER 2025-06-12 13:09 | Inpatient (IN) | payer OTHER, SELFPAY ==
[2025-06-10] VITALS (26 sets, daily range): BP systolic 69–152; BP diastolic 43–79; BMI 24.8
[2025-06-10 03:48] LABS: Hematocrit 29.2 % (39.0-52.0); Hemoglobin 10.1 g/dL (13.0-18.0); Mean Corp Hgb Conc. 34.6 g/dL (33.0-37.0); Mean Corpuscular Volume 91.3 fL (80.0-94.0); Nucleated Red Blood Cells % 0 % (-); Platelet Count 315 10^3/uL (130-400); Red Cell Dist. Width 12.5 % (11.5-14.5)
[2025-06-10 03:54] LABS: INR 1.09; PT 14.4 Sec (11.4-14.6)
[2025-06-10 03:55] LABS: APTT 28.8 Sec (23.4-35.0)
[2025-06-10 03:56] LABS: ALT (SGPT) 13 U/L (0-50); AST (SGOT) 14 U/L (17-59); Albumin 3.7 g/dl (3.5-5.0); Alkaline Phosphatase 46 U/L (38-126); Blood Urea Nitrogen 39 mg/dl (9-20); Calcium 8.5 mg/dl (8.4-10.2); Carbon Dioxide 24 mmol/L (22-30); Chloride 108 mmol/L (98-107); Glucose 137 mg/dl (70-99); Magnesium 2.0 mg/dl (1.6-2.3); Potassium 4.7 mmol/L (3.5-5.1); Sodium 138 mmol/L (135-145); Total Protein 5.9 g/dl (6.3-8.2); eGFR > 60.00
[2025-06-10 04:16] LABS: Troponin I 0.016 ng/ml
[2025-06-10 04:26] LABS: TSH 3.00 uIU/ml (0.47-4.68)
--- NOTE | 2025-06-10 04:34 | ED.GENMED ---
History of Present Illness
<Dwight Blakely MD, Resident - Last Filed: 06/10/25 05:58>
General
Chief Complaint: Chest Pain
Source: patient and family
Exam Limitations: none
Time Seen by Provider: 06/10/25 03:21
History of Present Illness
History of Present Illness:
This is a 64-year-old male with a recent 06/01/25 left heart catheterization, coronary angiography, successful IVUS guided PCI of the mid and distal LAD, successful PCI of the distal circumflex presenting in the emergency department with complaints
of multiple episodes of diaphoresis and 1 episode of lightheadedness today which prompted him to come to the ER. States that today he felt lightheaded in the bathroom and almost fell, did not lose consciousness, did not hit his head. They called
911 when the EMS arrived his blood pressure was 70/46. He was given aspirin 324 mg en route. He reports mild intermittent left-sided neck discomfort as well. Unsure if it is related to this or not. Reportedly he is compliant with his Brilinta
and aspirin in addition to other medications for blood pressure and diabetes.
Denies any other changes in the medical history.
Past History
<Dwight Blakely MD, Resident - Last Filed: 06/10/25 05:58>
Past History
ED Past Medical History: CAD, HTN and NIDDM
ED Past Surgical History: Cardiac
Patient has exhibited threatening behavior?: No
Social History
Tobacco: Non-smoker
Personal:
Living: with family
Family History
Family History: Other (Noncontributory)
Review of Systems
<Dwight Blakely MD, Resident - Last Filed: 06/10/25 05:58>
Review of Systems
Allergies reviewed?: Yes
All Other Systems: ROS reviewed and negative except as documented in HPI and ROS
Phy Exam
<Dwight Blakely MD, Resident - Last Filed: 06/10/25 05:58>
Physical Exam
Physical Exam:
General: Awake, Alert, Oriented X3. No acute distress.
Vitals: Stable
Head: Atraumatic
Eyes: Pupils equal, EOMI
Throat: Airway intact, no exudates
Neck: Trachea midline
Lungs: Clear and equal b/l
Heart: Regular rate, no murmurs
Abd: Soft, Nontender, No pulsatile mass
Neuro: Nonfocal
Skin: Warm, dry, no rash
Extremities: pulses equal b/l, no edema
Scores
<Dwight Blakely MD, Resident - Last Filed: 06/10/25 05:58>
Heart Score for Chest Pain Patients
STEMI patient?: No
History: Moderately Suspicious
ECG: Nonspecific Repolarization
Age: >/= 65 years
Risk Factors: >/= 3 Risk Factors or History of CAD
Troponin: </= Normal Limit
Heart Score for Chest Pain Patients: 6
Heart Score Risk: 20.3% MACE over next 6 weeks
Course
<Dwight Blakely MD, Resident - Last Filed: 06/10/25 05:58>
Orders/Labs/Results
Orders:
Orders
06/10/25 03:21
Electrocardiogram (*1) Stat
Reason for Study: Other
Other Reason for Exam: chest pain
Cardiac Monitoring- Treatment ONCE
EKG- Treatment ONCE
06/10/25 03:33
Complete Blood Count/With Diff Urgent
Comprehensive Metabolic Panel Urgent
Magnesium Urgent
NT-proBNP Urgent
PTT Urgent
Prothrombin Time Urgent
TSH Urgent
Troponin I Urgent
06/10/25 05:11
0.9% Sodium Chloride 500 ml [Nss] 500 ml IV BOLUS
06/10/25 06:30
Troponin I Urgent
Abnormal Lab Results
06/10/25
03:33
RBC 3.20 L 10^6/uL
(4.70-6.10)
Hgb 10.1 L g/dL
(13.0-18.0)
Hct 29.2 L %
(39.0-52.0)
MCH 31.6 H pg
(27.0-31.0)
Absolute Neuts (auto) 7.6 H 10^3/uL
(1.4-6.5)
Lymphocytes % 19.7 L %
(20.5-51.1)
Chloride 108 H mmol/L
(98-107)
BUN 39 H mg/dl
(9-20)
Glucose 137 H mg/dl
(70-99)
AST 14 L U/L
(17-59)
Total Protein 5.9 L g/dl
(6.3-8.2)
06/10/25 03:33
06/10/25 03:33
Vital Signs
Initial and Last Documented VS:
Initial Vital Signs
BP
69/43
06/10/25 03:17
Last Documented Vital Signs
Temp Pulse Resp BP Pulse Ox
98.3 F 73 16 113/59 100
06/10/25 03:19 06/10/25 03:30 06/10/25 03:30 06/10/25 03:29 06/10/25 04:41
Krishnalt;Jason Cunningham, DO - Last Filed: 06/10/25 05:42>
Orders/Labs/Results
Orders:
Orders
06/10/25 03:21
Electrocardiogram (*1) Stat
Reason for Study: Other
Other Reason for Exam: chest pain
Cardiac Monitoring- Treatment ONCE
EKG- Treatment ONCE
06/10/25 03:33
Complete Blood Count/With Diff Urgent
Comprehensive Metabolic Panel Urgent
Magnesium Urgent
NT-proBNP Urgent
PTT Urgent
Prothrombin Time Urgent
TSH Urgent
Troponin I Urgent
06/10/25 05:11
0.9% Sodium Chloride 500 ml [Nss] 500 ml IV BOLUS
06/10/25 06:30
Troponin I Urgent
Abnormal Lab Results
06/10/25
03:33
RBC 3.20 L 10^6/uL
(4.70-6.10)
Hgb 10.1 L g/dL
(13.0-18.0)
Hct 29.2 L %
(39.0-52.0)
MCH 31.6 H pg
(27.0-31.0)
Absolute Neuts (auto) 7.6 H 10^3/uL
(1.4-6.5)
Lymphocytes % 19.7 L %
(20.5-51.1)
Chloride 108 H mmol/L
(98-107)
BUN 39 H mg/dl
(9-20)
Glucose 137 H mg/dl
(70-99)
AST 14 L U/L
(17-59)
Total Protein 5.9 L g/dl
(6.3-8.2)
06/10/25 03:33
06/10/25 03:33
Vital Signs
Initial and Last Documented VS:
Initial Vital Signs
BP
69/43
06/10/25 03:17
Last Documented Vital Signs
Temp Pulse Resp BP Pulse Ox
98.3 F 73 16 113/59 100
06/10/25 03:19 06/10/25 03:30 06/10/25 03:30 06/10/25 03:29 06/10/25 04:41
<Dwight Blakely MD, Resident - Last Filed: 06/10/25 05:58>
MDM/Problems Addressed
Differential Diagnosis Includes:
Cardiac vs others
MDM/Problems Addressed:
EKG with sinus rhythm with frequent PVCs.
CBC with hemoglobin of 10.1
PT/INR within normal limits
CMP with elevated BUN of 39, blood glucose of 137. Troponin of 0.016
TSH within normal limits
proBNP of 454
Magnesium of 2.0
Record reviewed : He has residual RCA stenosis 70-80%.
Given his drop in hemoglobin from 13-10, discussed doing a rectal exam however he declined. He denies any blood in the stools.
Discussed with cardio Dr. Gaviria, who recommended to admit for additional evaluation.
Will get a repeat trops in the meantime.
Patient and family updated and agree with the plan.
Chronic conditions affecting care: DM, HTN and CAD
<Dwight Blakely MD, Resident - Last Filed: 06/10/25 05:58>
*Pulse Oximetry
SaO2: 100
Oxygen Mode of Delivery: Room air
Patient hypoxic: no
*Critical Care Note
Total Time (30-74mins, 75-104mins- exclusive of procedures): Not Applicable
ED Attending Note
<Dwight Blakely MD, Resident - Last Filed: 06/10/25 05:58>
-
Portions of this chart may have been created with voice recognition software.� Occasional wrong word or��sound alike� substitutions may have occurred due to the inherent limitations of voice recognition software.
<Jason Cunningham, - Last Filed: 06/10/25 05:42>
ED Attending Note
Patient seen and examined by attending physician: Yes
I performed a history and physical exam of patient and discussed management with resident, I reviewed resident's note and agree with documented findings and plan of care.: Yes
ED Attending Note:
64 male seen with resident recent ND with residual RCA disease presents with diaphoresis low blood pressure EKG troponin noted, was discharged on a beta-magaly and PETER inhibitor, will repeat his EKG and troponin in few hours ask cardiology to see
him
Discharge Plan
Departure
Patient Disposition: Admit
Date of Disposition: 06/10/25
Time of Disposition: 05:56
Admit to: Telemetry
Presentation/result/management discussed w/ accepting MD/DO: Hospitalist
Patient with high blood pressure during this ER visit?: No
Condition: Fair
Discharge Problem:
Chest pain
Prescriptions:
No Action
metformin 500 mg Tablet
500 mg PO BID
tramadol 50 mg Tablet
100 mg PO Q6HPRN PRN (Reason: moderate pains)
ezetimibe [Zetia] 10 mg Tablet
10 mg PO DAILY
ticagrelor [Brilinta] 90 mg Tablet
90 mg PO BID Qty: 60 12RF
aspirin 81 mg Tablet,Chewable
81 mg PO DAILY Qty: 1 0RF
rosuvastatin 20 mg Tablet
20 mg PO QPM Qty: 90 5RF
metoprolol succinate 25 mg Tablet Extended Release 24 Hr
12.5 mg PO DAILY Qty: 9 5RF
lisinopril 5 mg tablet
5 mg PO DAILY Qty: 30 3RF
nicotine 14 mg/24 hr Patch 24 Hour
1 patch TRANSDERMAL DAILY
Referrals:
Karan Prescott MD [Family Provider, Family Practice]
Interventions
Interventions:
*Risk Screen - Suicide Last Done: 06/10/25 03:19
*General Assessment Last Done: 06/10/25 03:19
*Neglect/Abuse Screening Last Done: 06/10/25 03:19
*ED- Fall Risk Assessment Last Done: 06/10/25 03:19
*ED COVID-19 Vaccine History Last Done: 06/10/25 03:19
ED- Cardiac Assessment Last Done: 06/10/25 04:00
Discharge Date and Time
Print Language: INDIAN
[2025-06-10] MEDS: NSS 500 IV (05:30)
--- NOTE | 2025-06-10 06:09 | HPS.HSE ---
Family Physician
-
Family Physician: Karan Prescott
Chief Complaint
-
Chest pain
History of Present Illness
This is a 64-year-old male with past medical history significant for hypertension, diabetes, hyperlipidemia CAD with recent stenting who presents to the emergency department with lightheadedness diaphoresis and hypotension.
Patient has been having recent episodes of intermittent chest pain and was admitted to the hospital with NSTEMI about 1 week ago. You underwent cardiac catheterization immediately with multiple vessel CAD and underwent successful stenting of the
mid and distal LAD with 2 overlapping drug-eluting stents as well as stenting of the distal circumflex. He had residual RCA stenosis which will be intervened upon in the next few weeks. Postprocedure he had no further chest pain, echocardiogram
showed a EF of 55% with some wall motion abnormality. He was placed on dual antiplatelet therapy and statin. He was laso started on lisinopril and metoprolol. Patient reports being chest pain-free since then.
Patient reports intermittent episodes of diaphoresis lasting 5 - 10 minutes w/o chest pain for the last 1 week. He reports lightheadedness. No palpitations. Denies leg swelling or calf tenderness. Denies pleuritic symptoms. No fevers. No
orthopnea, pnd or LEON. He denies any melena or hematochezia. He got up overnight and felt very lightheaded and diaphoretic and weak and fell. Did not lose consciousness and did not hit his head. He reports compliance with his dual antiplatelet
therapy as well as his statin. Due to the episode of lightheadedness and recurrent diaphoresis he called EMS and he was found to be hypotensive to 70/46 on the arrival.
On transfer to the ED patient's initial blood pressures was in the 60s systolic, currently blood pressure was 110/60 with a pulse rate of 73. He is satting 98% on room air. ECG showed sinus rhythm in the 70s with occasional PVC and T wave
inversion in V4 through 6. Initial troponin 0.016. BNP was 450.
Electrolytes were normal. BUN and creatinine showed a slight elevation in BUN to 39 creatinine of 1.0. CBC was unchanged from prior with white count of 10.3 globin of 10 and platelet of 315.
Medical History
Past Medical History
Past Medical History: Reports HTN, Hypercholesterolemia and Other (as above)
Past Surgical History: Reports None
Social History
Tobacco: Smoker (1 PPPD)
Personal:
Living: With Family
Family History
Family History: CAD (dad stents around this age)
Allergies / Home Medications
Allergies reflects when Allergies were last updated in [facility].
Home Medications with original date entered in [facility]
Allergy/Medication List:
Allergies
Allergy/AdvReac Type Severity Reaction Status Date / Time
No Known Allergies Allergy Verified 06/10/25 03:18
Home Medications
ezetimibe 10 mg tablet (Zetia) 10 mg PO DAILY 06/01/25
metformin 500 mg tablet 500 mg PO BID 06/01/25
tramadol 50 mg tablet 100 mg PO Q6HPRN PRN moderate pains 06/01/25
aspirin 81 mg chewable tablet 81 mg PO DAILY #1 tab 06/02/25
metoprolol succinate 25 mg tablet,extended release 24 hr 12.5 mg (1/2 x 25 mg) PO DAILY #9 tabs 06/02/25
rosuvastatin 20 mg tablet 20 mg PO QPM #90 tabs 06/02/25
ticagrelor 90 mg tablet (Brilinta) 90 mg PO BID #60 tabs 06/02/25
lisinopril 5 mg tablet 5 mg PO DAILY Heart disease/condition #30 tabs 06/03/25
nicotine 14 mg/24 hr daily transdermal patch 1 patch transdermal DAILY 06/10/25
Review of Systems
-
Constitutional: Reports No Symptoms
EENT: Reports No Symptoms
Respiratory: Reports No Symptoms
Cardiac: Reports Diaphoresis
Abdomen/GI: Reports No Symptoms
: Reports No Symptoms
Musculoskeletal: Reports No Symptoms
Skin: Reports No Symptoms
Neurological: Reports Dizzy
Endocrine: Reports No Symptoms
Hematologic/Lymphatic: Reports No Symptoms
Psych: Reports No Symptoms
Physical Exam
Vital Signs
Vital Signs
Temp Pulse Resp BP Pulse Ox
98.3 F 73 16 113/59 100
06/10/25 03:19 06/10/25 03:30 06/10/25 03:30 06/10/25 03:29 06/10/25 04:41
Physical Exam
General: Well Developed, Well Nourished and No Apparent Distress
HEENT: NormoCephalic and Anicteric
Respiratory: Clear and Non Labored Respirations
Cardiac: Regular Rhythm
Breast: Deferred by me
GI: Soft, Non Tender and Non Distended
Rectal: Deferred by Provider
Genito-urinary: Deferred by me
Musculoskeletal: No Clubbing, No Cyanosis and No Edema
Skin: Warm and Dry
Neuro: AO x 3 and Nonfocal/grossly intact
Psych: Calm
Laboratory Results
-
06/10/25 03:33
06/10/25 03:33
Laboratory Results
PT 14.4 Sec (11.4-14.6) 06/10/25 03:33
INR 1.09 06/10/25 03:33
APTT 28.8 Sec (23.4-35.0) 06/10/25 03:33
Total Bilirubin 0.4 mg/dl (0.2-1.3) 06/10/25 03:33
AST 14 U/L (17-59) L 06/10/25 03:33
ALT 13 U/L (0-50) 06/10/25 03:33
Alkaline Phosphatase 46 U/L (38-126) 06/10/25 03:33
Troponin I 0.016 ng/ml 06/10/25 03:33
Data Reviewed
-
Medical Tests (Nuc Med, Echo, EKG etc): Image Personally Visualized and interpreted
Lab Data: Labs Reviewed by me
Old Records: Reviewed
Impression/Plan
-
IMPRESSION:
64-year-old with history of CAD status post NSTEMI with multivessel disease and status post cath PCI with multiple drug-eluting stents placed in the mid and distal LAD as well as distal circumflex with residual disease 70 to 80% stenosis in the RCA
who presents with intermittent lightheadedness and diaphoresis since discharge and then presyncopal episode today. Found to be hypotensive by EMS. Initially hypotensive in the ED but now normotensive. Differential includes hypotension secondary
to medications, GI bleed, atypical ischemic presentation. However patient ECG is nonischemic and his troponin is negative. No shortness of breath, pleuritic chest pain or hypoxia to suggest pulmonary embolism. No palpitations and ECG w/o VT or
SVT.
PLAN:
1. Presyncope - medication vs cardiogenic (diaphoresis)
- admit to IVU
- hold lizinopril and metoprolol fo rnow
- hold metformin
- continue gentle hydration,
- gauiac all stools, trend h/h
- trend troponins
- echo
- npo pending cardiology eval
- continue DAPT/ezetimibe/statin
- cardiology consulted and notified
DVT PPX - SCD
Code Status - Full code
[2025-06-10 07:32] LABS: Troponin I 0.014 ng/ml
--- NOTE | 2025-06-10 07:53 | CON.CAR ---
Addendum entered and electronically signed by Dima Gaviria MD 06/10/25 10:05:
I saw and examined the patient.
The SPRAY G[employer]ER's note was reviewed and I agree with the note.
64-year-old male with history of diabetes hypertension and hypercholesterolemia who had a recent hospitalization with NSTEMI and was noted to have multivessel coronary artery disease. Patient underwent stenting of the LAD and stenting of left
circumflex. He has residual RCA disease and there were going to be future plans for RCA PCI. Patient states he had been feeling pretty well on medical therapy. Today he presented with lightheadedness near syncope and hypotension. Patient states
he woke up and needed to have a bowel movement went to go to the bathroom and was lightheaded and dizzy he fell but did not lose consciousness. Patient was hypotensive. EMS confirmed hypotension on arrival and patient was hypotensive on arrival to
the ED. He was in sinus rhythm ECG with no acute changes he responded to IV fluids. In the ER labs are notable for hemoglobin of 10.1 in the ER which was reduction from 13.4 on 06/02/2025. Patient had a follow-up hemoglobin 5 hours and 45 minutes
later which was 9.1. This was also after administration of IV fluids. Patient currently comfortable just tired in bed. Blood pressure 125.
Patient states he has been feeling well acute yesterday he was out in the heat for period of time did not drink a lot mainly drank coffee he was tired and fatigued at the end of the day. No fever no GI or abdominal symptoms. No known evidence of
bleeding. He had a bowel movement today and did not look at it.
.
Hypotension. Etiology unclear. Patient has drop in hemoglobin but without clear overt signs of bleeding. Possibility of GI bleeding needs to be considered. Medications including Toprol and lisinopril as well is volume are also considerations.
At this point no clear evidence of patient has coronary ischemia no chest pain or acute ECG change.
- Monitor on telemetry
- Serial hemoglobin
- Type and cross
- Additional assessment by hospitalist to further assess drop in hemoglobin. Issues were reviewed with Dr. Mercado who will be reassessing.
.
Anemia. New. Etiology unclear. Patient currently on DAPT being assessed for bleeding.
- Monitor hemoglobin
- Type and cross
- Continue aspirin with recent coronary stenting. If evidence of bleeding would hold Brilinta
.
Coronary artery disease/multivessel CAD with recent PCI of LAD and circumflex. Residual RCA stenosis
- No chest discomfort to suggest angina
- ECG without acute change and troponin negative
- Continue medical therapy for CAD some limitations due to BP
- Continue aspirin. If no evidence of bleeding then would continue DAPT issues as outlined above
.
DM. Management as per primary team
- Hypercholesterolemia statin
Original Note:
Consultation
Consultation Request
Date/Time Consultation Requested: 06/10/25 0700
Date/Time Consultation Performed: 06/10/25 0800
Requesting Provider: Dr. Cunningham
Performing Provider: Luh FORRESTER for Dr. Gaviria
Reason for Consultation: dizziness, hypotension, diaphoresis, recent AK
Medical History
-
Chief Complaint: dizziness
History of Present Illness:
64 y/o male with HTN, HLD, NIDDM, and tobacco abuse hx recently admitted with NSTEMI and is s/p stenting (details below). He is now back as he reported that yesterday he was lethargic and with poor appetite. Around 8 PM he was laying and wanted to
get up to go to the bathroom, but felt dizzy, so held it. Then at 2 AM, he really had to go, but felt very dizzy when walking. He made it to the bathroom door, then dropped to the ground. He did not lose consciousness and was not injured. He did
have to have a BM, which he did. He did not see it. He was sweaty. No CP. EMS came and BP was low. In ER, he received a 500 cc bolus IVF. His BP is fine now. I do see that his hgb has dropped from 13.4 - 10.1. This was prior to fluids in the ER. He
is on DAPT for recent AK and stenting. He is not aware of any bleeding. He is in no distress at the time of my assessment. Since the fall, he feels a left neck sensation, but reports he did not hit his neck.
Past Medical History
Past Medical History: CAD, HTN, Hypercholesterolemia and NIDDM
Social History
Tobacco: Former Smoker
Personal:
Living: With Family
Family History
Family History: CAD (dad stents around this age)
Allergies / Home Medications
Allergy/AdvReac Type Severity Reaction Status Date / Time
No Known Allergies Allergy Verified 06/10/25 03:18
�Medication �Instructions �Recorded �Confirmed �Type
ezetimibe 10 mg tablet (Zetia) 10 mg PO DAILY 06/01/25 06/10/25 History
metformin 500 mg tablet 500 mg PO BID 06/01/25 06/10/25 History
tramadol 50 mg tablet 100 mg PO Q6HPRN PRN moderate pains 06/01/25 06/10/25 History
aspirin 81 mg chewable tablet 81 mg PO DAILY #1 tab 06/02/25 06/10/25 Rx
metoprolol succinate 25 mg 12.5 mg (1/2 x 25 mg) PO DAILY #9 06/02/25 06/10/25 Rx
tablet,extended release 24 hr tabs
rosuvastatin 20 mg tablet 20 mg PO QPM #90 tabs 06/02/25 06/10/25 Rx
ticagrelor 90 mg tablet (Brilinta) 90 mg PO BID #60 tabs 06/02/25 06/10/25 Rx
lisinopril 5 mg tablet 5 mg PO DAILY Heart 06/03/25 06/10/25 Rx
disease/condition #30 tabs
nicotine 14 mg/24 hr daily 1 patch transdermal DAILY 06/10/25 06/10/25 History
transdermal patch
Review of Systems
-
History Source: Patient
All other systems: Negative unless noted
Cardiac: Diaphoresis
Musculoskeletal: Other (left neck pain)
Neurological: Dizzy
Physical Exam
Vital Signs
Temp Pulse Resp BP Pulse Ox
98.3 F 91 11 125/66 99
06/10/25 03:19 06/10/25 07:31 06/10/25 07:31 06/10/25 07:30 06/10/25 07:31
Lab Results
06/10/25 03:33
06/10/25 03:33
Troponin I 0.014 ng/ml 06/10/25 06:41
Gxe-X-Umbppukoqba Pept 454 pg/ml 06/10/25 03:33
Physical Exam
General: Well Developed, Well Nourished and No Apparent Distress
HEENT: Normocephalic and Anicteric
Respiratory: Clear and Non Labored Respirations
Cardiac: Regular Rhythm
Musculoskeletal: No Edema
Skin: Warm and Dry
Neuro: AO x 3
Psych: Calm
Impression / Plan
-
Dizziness, diaphoresis, hypotension (severe 60's/40's):
-resolved now with IVF (and laying)
-hold ACEI, continue low dose BB as tolerated
-follow telemetry and BP's, ectopic atrial rhythm noted. No significant bradycardia seen.
-anemia w/u as below
Anemia:
-repeat hgb
-dropped from 13-10.1 (this was prior to fluids in ER)
-denies knowledge of blood in urine or stool, but is on DAPT. He declined rectal eval in ER. Thinks he has had hemorrhoids in the past. We will repeat hgb now and if remains low, I told him it will be very important to assess this.
Left neck discomfort:
-since fall, but denies hitting it
-w/u, management per primary
CAD with recent NSTEMI:
-S/P IVUS guided PCI of culprit dLAD and mLAD (overlapping Medtronic [place] 2.25 x 34 KRISS, 2.5 x 22 KRISS, post dilated with 2.25 NCB throughout, 2.5 NCB in the mid/proximal stent and 3.0 x 12 NCB in the proximal margin) with reduction in
stenosis to 0%, maintaining EMILY III flow. S/P PCI of tandem 60-70% and 80% dLCx lesions (Medtronic [place] 3.0 x 34 KRISS, post dilated with 3.0 NCB) with reduction in stenosis to 0%, maintaining EMILY III flow. Residual proximal LAD disease
(likely non-obstructive) and obstructive proximal/mid RCA disease remain. Staged PCI of RCA planned.
-continue DAPT, statin. Continue metoprolol as tolerated, hold ACEI as above.
-Echocardiogram 06/02/25 with EF 55%, LAD wall motion changes (mild to mod HK of mid anterior, mid anteroseptal and most of the apex-apical anterior, inferior and lateral apex), no sig valve disease.
HTN:
-low on arrival, now normalized s/p IVF
-hold ACEI, continue low dose BB as tolerated
Dyslipidemia:
-continue statin, recent LDL 182- needs OP follow-up
DM2:
-recent HbA1c 6.2%.
-on metformin as OP
Tobacco abuse:
-patient has quit since his recent AK, which I congratulated him on
Data:
Cardiac Catheterization/PCI, 06/01/2025:1. Right dominant circulation with severe, multivessel disease including tandem 70-80% lesions in the proximal and mid RCA, a 60% lesion in the distal circumflex followed by an underappreciated 70-80% lesion
in the distal circumflex, a 70% mid LAD lesion and a group of 90% lesions spanning the origin of the second diagonal and leading into a small, terminal LAD, not a candidate for surgical revascularization, status post successful IVUS guided PCI of
the mid and distal LAD lesions (overlapping Medtronic [place] 2.25 x 34 KRISS, 2.5 x 22 KRISS, postdilated with a 2.25 and 2.5 NC balloon throughout and a 3.0 x 12 NC balloon in the proximal margin) and successful PCI of the tandem distal
circumflex lesions (Medtronic [place] 3.0 x 34 KRISS, postdilated with a 3.0 NC balloon) with reduction in stenoses to 0%, maintaining EMILY-3 flow. 2. Normal filling pressures (LVEDP = 5 mmHg at 74.4 kg).
06/02/25: Normal left ventricular size, wall thickness and global systolic function, LVEF 55%. LAD wall motion changes: mild to moderate hypokinesis of the mid anterior, mid anteroseptal, and most of the apex (apical anterior, inferior, and lateral
apex). No significant valvular disease.
Data Reviewed
-
EKG: Tracing Personally Visualized and interpreted (SR with PVC's, anterior t abnormalities- similar to previous)
Medical Tests (Nuc Med, Echo etc): Report Reviewed by me (cath and echo as detailed)
Labs: Labs Reviewed by me
[2025-06-10] MEDS: LR 1000 IV ×2 (08:45→23:25)
[2025-06-10 09:19] LABS: Hematocrit 25.9 % (39.0-52.0); Hemoglobin 9.1 g/dL (13.0-18.0); Mean Corp Hgb Conc. 35.1 g/dL (33.0-37.0); Mean Corpuscular Volume 91.5 fL (80.0-94.0); Platelet Count 284 10^3/uL (130-400); Red Cell Dist. Width 12.6 % (11.5-14.5)
[2025-06-10 09:54] LABS: Troponin I 0.016 ng/ml
--- NOTE | 2025-06-10 10:03 | PTCARENOTE ---
Rec'd Pt from ED, A,A,+Ox3., SR on hospital monitor, HR 70's. BP 140/67 while lying in bed. Pt wanted to get OOb and walk to BR, when he sat at side of bed, he felt lightheaded and became slightly diaphoretic. BP rechecked while sitting, 118/74,
HR76. Pt then stood at side of bed which made he feel worse, BP 91/61, HR 82. Pt got back in bed and after lying down, he felt better, he's agreed to use urinal for now.
[2025-06-10 10:17] LABS: D-Dimer < 0.27 ug/mlFEU (0.00-0.50)
--- NOTE | 2025-06-10 10:18 | W.PN.HOSP.TC ---
Addendum entered and electronically signed by Shukri Isaacs MD 06/10/25 16:53:
Noticed finding per GI fungating mass in the rectum-this could be condyloma versus ?malignancy. Ordered repeat H&H stat. Came back and reevaluated patient and discussed risk and benefits of blood transfusion and he signed a consent and it is on
the chart. Likely proceed to blood transfusion depending on follow-up H&H. I discussed with general surgery who is covering for colorectal surgery and they will have colorectal surgery to see him on Thursday. Will defer the need for scope and
continue of dual antiplatelets to cardiology and GI. Discussed with everybody involved in his case including the rest of the specialist and attending RN. Keep n.p.o., IV fluids, PPI. Updated family at bedside as well.
Original Note:
Today's Communication/Plan
-
See plan
Assessment / Plan
Assessment / Plan
Physical exam:
General: Acutely ill
HEENT: Normocephalic, Atraumatic and Moist Mucous Membranes
Respiratory: Clear to Auscultation; Negative Wheezes, Rales or Rhonchi
Cardiac: Regular Rhythm and S1/S2
GI: Soft, Nontender and Nondistended
Musculoskeletal: No Clubbing, No Cyanosis and No Edema
Neuro: Awake, Alert and Oriented, no neurological deficit
Psych: Anxious, normal judgment and insight
A/P:
Hypotension:
Improving
Concerns for GI bleed as etiology-see below
Continue IV fluid
Hold antihypertensives
Continue to monitor blood pressure
Discussed with family at bedside ( and daughter)
Acute blood loss anemia/ Concerns for acute GI bleed:
Hemoglobin trending down
Keep n.p.o.
Start IV Protonix twice daily
GI consult-discussed with GI via Scott text today
Continue to monitor hemoglobin-discussed about the possible need of blood transfusion and patient is hesitant but states that he might be agreeable if it comes to that point so we will reevaluate.
Recent Non-STEMI/ CAD:
On DAPT but for now continue aspirin and hold Brilinta. Challenging situation given risk of recurrent IN or restenosis but on the other hand risk of acute GI bleed and hemorrhagic shock.
Recent PCI of LAD and circumflex with residual RCA stenosis.
Cardiology consult appreciated-discussed with cardiology today in person
Hypertension:
Holding PETER inhibitor and beta-blockers due to hypotension
Hyperlipidemia:
Continue statin and ezetimibe
Diabetes mellitus:
Insulin sliding scale
Hold metformin acutely
Chronic back pain including neck/ Chronic opioid dependence:
Continue tramadol as needed
DVT prophylaxis:
SCDs
CODE STATUS:
Full code
Total Critical Care Time__35___ minutes. I was immediately available to the patient and staff. I personally examined, reviewed labs, diagnostic images/reports, interpretations, treatment plans, discussed patient care with other providers and
family or caregivers (if patient is unable to make decisions), entered orders as appropriate and documented the medical record.
Anticipated Discharge: > 48 hours
Subjective/Interval History
-
Date of Service: June 10, 2025
Patient denies chest pain or shortness of breath today. He has not seen his stools but positive for stool occult blood today.
Objective Data
-
Labs:
Laboratory Results
06/10/25 06/10/25 06/10/25
03:33 09:12 12:00
WBC 10.3 8.4
Hgb 10.1 L 9.1 L Cancelled
Hct 29.2 L 25.9 L Cancelled
Plt Count 315 284
PT 14.4
INR 1.09
APTT 28.8
Sodium 138
Potassium 4.7
Chloride 108 H
Carbon Dioxide 24
BUN 39 H
Creatinine 1.0
Glucose 137 H
Calcium 8.5
Total Bilirubin 0.4
AST 14 L
ALT 13
Alkaline Phosphatase 46
06/10/25 06/10/25
17:00 20:00
WBC
Hgb Pending Cancelled
Hct Pending Cancelled
Plt Count
PT
INR
APTT
Sodium
Potassium
Chloride
Carbon Dioxide
BUN
Creatinine
Glucose
Calcium
Total Bilirubin
AST
ALT
Alkaline Phosphatase
Vital Signs:
Vital Signs
Temp Pulse Resp BP Pulse Ox
98.7 F 76 18 119/65 100
06/10/25 08:33 06/10/25 08:15 06/10/25 08:33 06/10/25 08:00 06/10/25 08:33
I&O
06/09/25 06/10/25 06/11/25
06:59 06:59 06:59
Output Total 400 / 400
Balance -400 / -400
[2025-06-10] MEDS: BRILINTA PO (10:47)
--- NOTE | 2025-06-10 11:00 | CON.GI ---
Addendum entered and electronically signed by Marisol Connor Do, MD 06/10/25 15:52:
I saw and evaluated the patient. I reviewed the resident�s note and agree with findings and plan as documented in the resident�s note.
Sebastian is a 64yo M with h/o DM, HTN and HL with recent admission for NSTEMI with cardiac stent 1 week ago. He had syncopal event over toilet at 2am and brought to . He tells me that he's felt 'hemorrhoidal protrusion' for many months. Denies
seeing red or black blood in stools. He has been constipated recently and at 2am on toilet for BM. With straining he passed out but only LOC few seconds. He flushed stool without looking. He did start brillinta and ASA recently. His father has
h/o CRC last Cscope >10yrs ago. Vitals reviewed. exam with large fungating mass in rectum with no stool normal sphincter tone. Labs reviewed Hbg downtrending
Impression
- Worsening anemia
- Rectal/anal mass
- Syncopal event
May be vasovagal from history
- Constipation
- Recent anticoagulation (ASA and brilinta)
- Recent NSTEMI s/p cardiac stent
- HTN
- HL
- DM
Recommendations
- Suspect acute on chronic GI blood loss from anal/rectal mass
- Recommend EGD/colonoscopy
- Consider colorectal surgery consult tomorrow or Thursday
- Ok to c/w ASA 81mg
- Timing of procedure dependent on holding of Brilinta. Patient is of high risk given recent cardiac stents however would not be able to do procedures and take adequate biopsies if it were to be continued.
- Above d/w cardiology
- Will start golytle prep when able to risk stratify anticoagulation. If brillinta not restarted would recommend starting prep today
Above d/w ,daughter, RN and valance cutter. Will follow with you
Original Note:
Consultation
-
Date/Time Consultation Requested: 06/10/25
Date/Time Consultation Performed: 06/10/2025
Medical History
Chief Complaint / HPI
Chief Complaint: Syncopal episode
History of Present Illness:
Patient is a 64-year-old male with past medical history of coronary artery disease, recent hospitalization for NSTEMI s/p stenting of LAD, and was recently started on dual antiplatelet therapy for the stent. He was in his usual state of health and
was recovering well but was very weak and tired. Yesterday, in the middle of the night he woke up to to go to the bathroom and at that time he felt very dizzy, unable to stand up or maintain balance, he fell down and his daughter and had to
help him get up. At that time, he was very sweaty and cold, emergency services were called and his blood pressure at that time was noticed to be 70 x 40.
He has had history of internal hemorrhoids and occasionally bleeds but he never had any melena, hematochezia, hematemesis, peptic ulcer disease. He has family history of colon cancer and had colonoscopy done 10 years ago that was normal as per the
patient. He had a bowel movement today but he did not look at it and so he does not know the color of the stool or blood in stool. He denies any abdominal pain, fever, nausea, vomiting, heartburn, indigestion, chills or any other issues. He also
denies any NSAID use.
Past Medical History
Past Medical History: CAD (NSTEMI s/p stents 05/2025), HTN, Hypercholesterolemia and NIDDM
Past Surgical History: None
Social History
Tobacco: Smoker (1ppd)
Alcohol: Occasional
Drug: None
Personal:
Living: With Family
Family History
Family History: Other (History of colon cancer in father)
Allergies / Home Medications
Allergy/AdvReac Type Severity Reaction Status Date / Time
No Known Allergies Allergy Verified 06/10/25 03:18
�Medication �Instructions �Recorded
ezetimibe 10 mg tablet (Zetia) 10 mg PO DAILY 06/01/25
metformin 500 mg tablet 500 mg PO BID 06/01/25
tramadol 50 mg tablet 100 mg PO Q6HPRN PRN moderate pains 06/01/25
aspirin 81 mg chewable tablet 81 mg PO DAILY #1 tab 06/02/25
metoprolol succinate 25 mg 12.5 mg (1/2 x 25 mg) PO DAILY #9 06/02/25
tablet,extended release 24 hr tabs
rosuvastatin 20 mg tablet 20 mg PO QPM #90 tabs 06/02/25
ticagrelor 90 mg tablet (Brilinta) 90 mg PO BID #60 tabs 06/02/25
lisinopril 5 mg tablet 5 mg PO DAILY Heart 06/03/25
disease/condition #30 tabs
nicotine 14 mg/24 hr daily 1 patch transdermal DAILY 06/10/25
transdermal patch
Review of Systems
-
All other systems: A 12 pt ROS was Negative except as stated above in HPI
Vital Signs
Temp Pulse Resp BP Pulse Ox
98.7 F 76 18 119/65 100
06/10/25 08:33 06/10/25 08:15 06/10/25 08:33 06/10/25 08:00 06/10/25 08:33
Physical Exam
Exam
General: Other (Appears very weak and tired)
Respiratory: Clear
Cardiac: S1/S2 and Regular Rhythm
GI: Soft, Non Tender, Non Distended and Normal Bowel Sounds
Musculoskeletal: No Clubbing, No Cyanosis and No Edema
Skin: Warm and Dry
Neuro: Awake and Nonfocal/Grossly Intact
Psych: Calm
Results
WBC 8.4 10^3/uL (4.8-10.8) 06/10/25 09:12
Hgb Cancelled 06/10/25 20:00
Hct Cancelled 06/10/25 20:00
MCV 91.5 fL (80.0-94.0) 06/10/25 09:12
Plt Count 284 10^3/uL (130-400) 06/10/25 09:12
Absolute Neuts (auto) 7.6 10^3/uL (1.4-6.5) H 06/10/25 03:33
PT 14.4 Sec (11.4-14.6) 06/10/25 03:33
INR 1.09 06/10/25 03:33
APTT 28.8 Sec (23.4-35.0) 06/10/25 03:33
Sodium 138 mmol/L (135-145) 06/10/25 03:33
Potassium 4.7 mmol/L (3.5-5.1) 06/10/25 03:33
Chloride 108 mmol/L (98-107) H 06/10/25 03:33
Carbon Dioxide 24 mmol/L (22-30) 06/10/25 03:33
BUN 39 mg/dl (9-20) H 06/10/25 03:33
Creatinine 1.0 mg/dL (0.7-1.3) 06/10/25 03:33
Calcium 8.5 mg/dl (8.4-10.2) 06/10/25 03:33
Total Bilirubin 0.4 mg/dl (0.2-1.3) 06/10/25 03:33
AST 14 U/L (17-59) L 06/10/25 03:33
ALT 13 U/L (0-50) 06/10/25 03:33
Alkaline Phosphatase 46 U/L (38-126) 06/10/25 03:33
Diagnostic Image Results:
Prior GI Procedures:
EGD:
Colonoscopy:
10 years ago-Normal as per the patiebnt
Assessment / Plan
-
Impression
This is a 64-year-old male, with past medical history significant for coronary artery disease and diabetes mellitus, recently discharged from hospital s/p stenting of LAD for NSTEMI. Admitted for workup of syncopal episode and acute drop in
hemoglobin. GI consulted to evaluate for any occult GI bleed.
Assessment/plan
Normocytic anemia
Hypertension
Elevated BUN
Coronary artery disease
NSTEMI s/p stenting of LAD
Diabetes mellitus
Smoker
Recommendations
Recently started on dual antiplatelet therapy, bleeding is a known side effect of Brilinta, can continue aspirin but hold Brilinta at this time
Continue IV fluids and optimize blood pressure
Continue PPI
Continue to monitor stool output for any bleed/melena
Monitor H&H
-type and crossmatch blood
Transfuse blood if hemoglobin less than 10
DVT prophylaxis-SCDs
CODE STATUS-full code
-
-
Thank you for consultation and allowing me to participate in the patient's care. Please call the instructional material director GI physician during the after hours with any questions or concerns.
--- NOTE | 2025-06-10 11:08 | PTCARENOTE ---
Pt had small BM, brown, formed, heme positive. Dr Isaacs and Dr Gaviria aware.
[2025-06-10] MEDS: NICODERM TRANSDERMAL 14 MG TRANSDERM (11:18)
[2025-06-10] MEDS: ZETIA 10 MG PO (11:18)
[2025-06-10] MEDS: PROTONIX IV 40 MG IV ×2 (11:18→19:45)
[2025-06-10] MEDS: NSS (PRESERVATIVE FREE) 10 ML IV ×2 (11:19→19:45)
[2025-06-10] MEDS: LOW STRENGTH ASPIRIN PO ×3 (11:26→17:48)
[2025-06-10 12:41] LABS: Glucose - Point of Care 125 mg/dl (70-99)
[2025-06-10] MEDS: ULTRAM 100 MG PO ×2 (12:52→19:44)
[2025-06-10 12:59] LABS: Hematocrit 24.9 % (39.0-52.0); Hemoglobin 8.7 g/dL (13.0-18.0); Mean Corp Hgb Conc. 34.9 g/dL (33.0-37.0); Mean Corpuscular Volume 90.9 fL (80.0-94.0); Platelet Count 284 10^3/uL (130-400); Red Cell Dist. Width 12.7 % (11.5-14.5)
[2025-06-10 16:41] LABS: Iron 123 ug/dl (49-181)
[2025-06-10 16:51] LABS: Total Iron Binding Capacity 285 ug/dl (261-462)
[2025-06-10 17:17] LABS: Glucose - Point of Care 120 mg/dl (70-99)
[2025-06-10 17:18] LABS: Ferritin 43.9 ng/ml (17.9-464.0)
[2025-06-10 17:24] LABS: Hematocrit 25.8 % (39.0-52.0); Hemoglobin 9.0 g/dL (13.0-18.0)
[2025-06-10] MEDS: CRESTOR 10 MG PO (17:44)
[2025-06-10 17:49] LABS: Folate 4.7 ng/ml (2.76-20); Vitamin B12 190 pg/ml (239-931)
[2025-06-10] MEDS: LOW STRENGTH ASPIRIN 81 MG PO (17:55)
--- NOTE | 2025-06-10 18:25 | W.PN.UPDATE ---
Update Note
Progress Note Update
Patient reassessed. i have also had multiple conversations with hospitalist and GI. Patient feeling better than he did this morning. Blood pressure appears to be stable. He has had some variation in heart rate but heart rates currently in the
70s to 80 range .No additional bowel movement since last assessment with no additional signs of overt GI bleeding. Hemoglobin last checked 9.0. With patient's presentation with hypotension and significant drop in hemoglobin from recent
hospitalization from 13-10 on admission and then 9 concern was for acute bleeding. Large rectal mass noted on exam which may a source of bleeding although a significant volume of BRBPR has not been seen. Complex situation in a patient with recent
coronary stenting ( LCX and LAD) and dual antiplatelet therapy. Normally would prefer to have patient remain on dual antiplatelet therapy but concerned of risk of ongoing bleeding and patient with presentation with hypotension and declining
hemoglobin Brilinta held was held this morning but patient has remained on aspirin.. Although patient has higher risk of stent thrombosis on single antiplatelet agent there is concern regarding his risk of ongoing bleeding. Will continue to assess
for source of bleeding and will continue to monitor hemoglobin and hemodynamics still ability.
- Continued monitoring of hemoglobin.
- Considering the degree of hemoglobin drop without a significant amount of stool showing GI bleeding question is still raised if he could have an upper GI bleed and we have not seen him passed blood yet or if there is a possibly another source.
Would favor abdominal CT to also assess for extraluminal bleeding/retroperitoneal bleed
[2025-06-10 21:02] LABS: Glucose - Point of Care 126 mg/dl (70-99)
[2025-06-10 23:28] LABS: Glucose - Point of Care 125 mg/dl (70-99)
[2025-06-10 23:43] LABS: Hematocrit 22.5 % (39.0-52.0); Hemoglobin 8.1 g/dL (13.0-18.0)
[2025-06-11] VITALS (23 sets, daily range): BP systolic 114–162; BP diastolic 61–94; PULSE 81–88; BMI 25.2
[2025-06-11] MEDS: ULTRAM 100 MG PO ×4 (03:26→21:33)
[2025-06-11 03:35] LABS: Hematocrit 22.1 % (39.0-52.0); Hemoglobin 7.9 g/dL (13.0-18.0); Mean Corp Hgb Conc. 35.7 g/dL (33.0-37.0); Mean Corpuscular Volume 91.3 fL (80.0-94.0); Platelet Count 285 10^3/uL (130-400); Red Cell Dist. Width 12.4 % (11.5-14.5)
[2025-06-11 03:56] LABS: Blood Urea Nitrogen 23 mg/dl (9-20); Calcium 8.3 mg/dl (8.4-10.2); Carbon Dioxide 22 mmol/L (22-30); Chloride 110 mmol/L (98-107); Estimated Creatinine Clearance 85 ml/min; Glucose 107 mg/dl (70-99); Potassium 3.9 mmol/L (3.5-5.1); Sodium 138 mmol/L (135-145); eGFR > 60.00
--- NOTE | 2025-06-11 05:40 | PTCARENOTE ---
20:00- Ultram given for chonic neck/back pain.
20:15 - pt taken down to for CT of abdomen accompanied by RN while maintained on strict bedrest. Pt denies light headed feeling or dizziness.
00:00- H&h drawn. hgb decreased to 8.1. Dr Gaviria, Dr Herbert, and [facility] R[facility]ie made aware.
0330 - H&H drawn resulted at 7.9, [facility] R[facility] notified.
0400 - Rec'd order for 1 unit of PRBC.
0440 - Administered 1 unit PRBC. RN accompanied pt for first 20 minutes of infusion. Pt denies any fever, chills, or discomfort. See TAR for admin details.
--- NOTE | 2025-06-11 05:42 | PTCARENOTE ---
Rec'd pt at change of shift. Pt AAO*3, VSS, and SR on TELE monitor. Pt reports chronic neck and back pain, PRN pain medication given as ordered. Pt kept on bedrest and agreed to activity restriction given positive ortho. Pt with call ty in
reach. See MAR and flowchart for full pt care and assessment.
[2025-06-11 06:15] LABS: Glucose - Point of Care 124 mg/dl (70-99)
--- NOTE | 2025-06-11 06:31 | PTCARENOTE ---
PRBC transfusion complete. H&h ordered. Pt resting with call ty in reach and VSS. See TAR
--- NOTE | 2025-06-11 08:30 | W.PN.HOSP.TC ---
Today's Communication/Plan
-
Monitor hemoglobin. Plan for EGD and colonoscopy
Assessment / Plan
Assessment / Plan
Physical exam:
General: Acutely ill
HEENT: Normocephalic, Atraumatic and Moist Mucous Membranes
Respiratory: Clear to Auscultation; Negative Wheezes, Rales or Rhonchi
Cardiac: Regular Rhythm and S1/S2
GI: Soft, Nontender and Nondistended
Musculoskeletal: No Clubbing, No Cyanosis and No Edema
Neuro: Awake, Alert and Oriented, no neurological deficit
Psych: Anxious, normal judgment and insight
A/P:
Hypotension:
Improving
Concerns for GI bleed as etiology-see below
Continue IV fluid
Hold antihypertensives
Continue to monitor blood pressure
Discussed with family at bedside ( and daughter)
Acute blood loss anemia/ Concerns for acute GI bleed:
Hemoglobin trended down and required blood transfusion overnight
Continue to monitor hemoglobin
GI consult appreciated
Plan for EGD/colonoscopy tomorrow
Fungating mass rectal area:
Appears to be a condyloma but cannot rule out malignancy
Discussed with general surgery who is covering for colorectal surgery
Recent Non-STEMI/ CAD:
On DAPT but for now continue aspirin and hold Brilinta. Challenging situation given risk of recurrent RI or restenosis but on the other hand risk of acute GI bleed and hemorrhagic shock.
Recent PCI of LAD and circumflex with residual RCA stenosis.
Cardiology consult appreciated
Anxiety, not specified:
Will start Xanax as needed
Hypertension:
Holding PETER inhibitor and beta-blockers due to hypotension
Hyperlipidemia:
Continue statin and ezetimibe
Diabetes mellitus:
Insulin sliding scale
Hold metformin acutely
Chronic back pain including neck/ Chronic opioid dependence:
Continue tramadol as needed
DVT prophylaxis:
SCDs
CODE STATUS:
Full code
Total time spent on today's encounter was 56 minutes which included time spent in counseling the patient/family regarding diagnosis and treatment plan as listed above, goals of care, and symptom management. Case was discussed with nursing staff,
specialists, and care coordinators/case management. All labs and imaging personally reviewed by me. Remainder the time spent in detailed review of previous records, lab data, imaging, and other medical provider documentation.
Anticipated Discharge: 24 - 48 hours
Subjective/Interval History
-
Date of Service: June 11, 2025
Patient denies any chest pain or shortness of breath. Patient denies any melena or hematemesis. Tachycardia and hypotension improving. He feels very anxious today.
Objective Data
-
Labs:
Laboratory Results
06/10/25 06/11/25 06/11/25
23:37 03:22 08:25
WBC 8.6
Hgb 8.1 L 7.9 L Pending
Hct 22.5 L 22.1 L Pending
Plt Count 285
Sodium 138
Potassium 3.9
Chloride 110 H
Carbon Dioxide 22
BUN 23 H
Creatinine 0.8
Glucose 107 H
Calcium 8.3 L
Vital Signs:
Vital Signs
Temp Pulse Resp BP Pulse Ox
98.1 F 69 20 134/75 100
06/11/25 07:24 06/11/25 06:24 06/11/25 07:24 06/11/25 06:24 06/11/25 07:24
I&O
06/10/25 06/11/25 06/12/25
06:59 06:59 06:59
Intake Total 250 / 250
Output Total 1225 / 1225
Balance -975 / -975
--- NOTE | 2025-06-11 08:31 | W.PN.CD ---
Today's Communication / Plan
-
Hemoglobin trended down to 7.9 and patient received a unit of blood early this morning
Currently hemodynamically stable. No GI output overnight.
Abdominal CT 06/10/2025 with no evidence of intra-abdominal or retroperitoneal bleeding
Source/cause of hemoglobin drop not clear
Rectal mass noted see GI note
Await reassessment by GI and hospitalist this morning as we continue to assess treatment plans for this patient.
Impression / Plan
-
Dizziness, diaphoresis, hypotension. This was changed patient's chief complaint
-resolved now with IVF (and laying)
-hold ACEI, continue low dose BB as tolerated
-follow telemetry and BP's, ectopic atrial rhythm noted. No significant bradycardia seen.
-anemia w/u as below
Anemia/suspected blood loss anemia suspected GI bleed without clear source:
-dropped from 13-10.1 (this was prior to fluids in ER). Then since in hospital hemoglobin has trended down and got down to 7.9 in agricultural plow operator hours 06/11/2025. Patient received 1 unit of PRBCs.
- Patient with rectal mass as noted by gastroenterology and patient has heme positive stool but without gross blood. Although rectal mass present was not clear that this is the only potential source of bleeding. CT scan was performed 06/10/2025 no
evidence of retroperitoneal or intra-abdominal bleeding.
- Complex issue in patient with recent coronary stenting. Due to concern for presentation with hypotension dropping hemoglobin and concern for active bleeding Brilinta held 06/10/2025 difficult balance of issues reviewed with patient and reviewed
with interventional cardiology as well as with GI. Patient must remain on aspirin would like to resume Brilinta as soon as possible will review with GI
- Additional evaluation and treatment as per GI.
.
Rectal mass.
- See GI note
- Plan for colorectal surgery consultation
CAD with recent NSTEMI:
-S/P IVUS guided PCI of culprit dLAD and mLAD (overlapping Medtronic Cesar Doddridge 2.25 x 34 KRISS, 2.5 x 22 KRISS, post dilated with 2.25 NCB throughout, 2.5 NCB in the mid/proximal stent and 3.0 x 12 NCB in the proximal margin) with reduction in
stenosis to 0%, maintaining EMILY III flow. S/P PCI of tandem 60-70% and 80% dLCx lesions (Medtronic Cesar Doddridge 3.0 x 34 KRISS, post dilated with 3.0 NCB) with reduction in stenosis to 0%, maintaining EMILY III flow. Residual proximal LAD disease
(likely non-obstructive) and obstructive proximal/mid RCA disease remain. Staged PCI of RCA planned.
-Echocardiogram 06/02/25 with EF 55%, LAD wall motion changes (mild to mod HK of mid anterior, mid anteroseptal and most of the apex-apical anterior, inferior and lateral apex), no sig valve disease.
Dyslipidemia:
-continue statin, recent LDL 182- needs OP follow-up
DM2:
-recent HbA1c 6.2%.
-on metformin as OP
Tobacco abuse:
-patient has quit since his recent PA, which I congratulated him on
Data:
Cardiac Catheterization/PCI, 06/01/2025:1. Right dominant circulation with severe, multivessel disease including tandem 70-80% lesions in the proximal and mid RCA, a 60% lesion in the distal circumflex followed by an underappreciated 70-80% lesion
in the distal circumflex, a 70% mid LAD lesion and a group of 90% lesions spanning the origin of the second diagonal and leading into a small, terminal LAD, not a candidate for surgical revascularization, status post successful IVUS guided PCI of
the mid and distal LAD lesions (overlapping Medtronic Leonard Doddridge 2.25 x 34 KRISS, 2.5 x 22 KRISS, postdilated with a 2.25 and 2.5 NC balloon throughout and a 3.0 x 12 NC balloon in the proximal margin) and successful PCI of the tandem distal
circumflex lesions (Medtronic Leonard Doddridge 3.0 x 34 KRISS, postdilated with a 3.0 NC balloon) with reduction in stenoses to 0%, maintaining EMILY-3 flow. 2. Normal filling pressures (LVEDP = 5 mmHg at 74.4 kg).
06/02/25: Normal left ventricular size, wall thickness and global systolic function, LVEF 55%. LAD wall motion changes: mild to moderate hypokinesis of the mid anterior, mid anteroseptal, and most of the apex (apical anterior, inferior, and lateral
apex). No significant valvular disease.
Physical Exam
Vital Signs/Labs
Vital Signs
Temp Pulse Resp BP Pulse Ox
98.1 F 69 20 134/75 100
06/11/25 07:24 06/11/25 06:24 06/11/25 07:24 06/11/25 06:24 06/11/25 07:24
06/10/25 06/11/25 06/12/25
06:59 06:59 06:59
Actual Weight 71.2 kg 72.8 kg
06/11/25 03:22
PT 14.4 Sec (11.4-14.6) 06/10/25 03:33
INR 1.09 06/10/25 03:33
APTT 28.8 Sec (23.4-35.0) 06/10/25 03:33
Magnesium 2.0 mg/dl (1.6-2.3) 06/10/25 03:33
TSH 3.00 uIU/ml (0.47-4.68) 06/10/25 03:33
06/10/25
03:33
Swq-V-Iprwbospleg Pept 454
LAB Results
06/10/25 06/10/25 06/10/25
03:33 06:41 09:12
Troponin I 0.016 0.014 0.016
Physical Exam
Constitutional: No acute distress
Cardiovascular: Rhythm & rate is regular
Respiratory: Respiratory effort normal
GI: Soft
Neuro/Psych: Alert
Data Reviewed
-
Date of Service: June 11, 2025
Medical Decision Making: Reviewed Test Results
Medical Tests (PFT, Pathology etc): Report Reviewed by me
Labs: Labs Reviewed by me
[2025-06-11] MEDS: PROTONIX IV 40 MG IV ×2 (08:54→19:51)
[2025-06-11] MEDS: NSS (PRESERVATIVE FREE) 10 ML IV ×2 (08:54→19:50)
[2025-06-11] MEDS: LOW STRENGTH ASPIRIN 81 MG PO (08:55)
[2025-06-11] MEDS: ZETIA 10 MG PO (08:55)
[2025-06-11] MEDS: NICODERM TRANSDERMAL 14 MG TRANSDERM (09:05)
[2025-06-11 09:06] LABS: Hematocrit 26.2 % (39.0-52.0); Hemoglobin 9.3 g/dL (13.0-18.0)
--- NOTE | 2025-06-11 09:21 | W.PN.GI.CBS2 ---
Today's Communication / Plan
-
IM vitamin B12
Colytle CLD
NPO at [facility] for EGD/colon tomorrow
Above d/w cardiology and RN
Will follow with you
Assessment / Plan
-
Sebastian is a 64yo M with h/o DM, HTN and HL with recent admission for NSTEMI with cardiac stent 1 week ago. He had syncopal event over toilet at 2am and brought to . He tells me that he's felt 'hemorrhoidal protrusion' for many months. Denies
seeing red or black blood in stools. He has been constipated recently and at 2am on toilet for BM. With straining he passed out but only LOC few seconds. He flushed stool without looking. He did start brillinta and ASA recently. His father has
h/o CRC last Cscope >10yrs ago. Vitals reviewed. exam with large fungating mass in rectum with no stool normal sphincter tone. Labs reviewed Hbg downtrending
Impression
- Worsening anemia
Hbg 15 (05/24) to 7.9 lowest 06/10
- Vit B12 deficiency
- Rectal/anal mass
- Syncopal event
May be vasovagal from history or from GIB
- Constipation
- Recent anticoagulation (ASA and brilinta last 06/08)
- Recent NSTEMI s/p cardiac stent
- HTN
- HL
- DM
Recommendations
- s/p 1 unit PRBC overnight
- HR today improved
- Start IM vitamin B12
- Start colylte 4L today, CLD
- NPO at [facility] for EGD/colonoscopy
- Colorectal surgery consult Thursday for possible bx of anal/rectal mass
- Ok to c/w ASA 81mg
- Continue to hold Brilinta given ongoing signs of GIB
Above d/w RN and kosher dietary service supervisor. Will follow with you
Subjective
Subjective
Date of Service: June 11, 2025
He has not had further BM since 06/10 AM. Denies abd pain, nausea/vomiting. Did get one unit PRBC transfused today
Objective
Data Reviewed
Laboratory Data:
Laboratory Results
06/11/25 08:51
06/11/25 03:22
Laboratory Results
PT 14.4 Sec (11.4-14.6) 06/10/25 03:33
INR 1.09 06/10/25 03:33
APTT 28.8 Sec (23.4-35.0) 06/10/25 03:33
Magnesium 2.0 mg/dl (1.6-2.3) 06/10/25 03:33
Total Bilirubin 0.4 mg/dl (0.2-1.3) 06/10/25 03:33
AST 14 U/L (17-59) L 06/10/25 03:33
ALT 13 U/L (0-50) 06/10/25 03:33
Alkaline Phosphatase 46 U/L (38-126) 06/10/25 03:33
Vital Signs and I&O:
Vital Signs
Temp Pulse Resp BP Pulse Ox
98.1 F 69 20 134/75 100
06/11/25 07:24 06/11/25 06:24 06/11/25 07:24 06/11/25 06:24 06/11/25 07:24
I&O
06/10/25 06/11/25 06/12/25
06:59 06:59 06:59
Intake Total 250 / 250
Output Total 1225 / 1225
Balance -975 / -975
Physical Exam
Physical Exam
GEN: No acute distress, conversant, pleasant
HEENT: anicteric, extraocular movements intact, clear oropharynx without exudates poor dentition
GI: soft, non-distended, not tender to palpation, normal active bowel sounds, no hepatosplenomegaly
EXT: warm, well perfused, trace edema bilaterally
NEURO: AAOx3, non-focal
[2025-06-11] MEDS: DULCOLAX 10 MG PO (10:23)
[2025-06-11] MEDS: CYANOCOBALAMIN 1000 MCG IM (10:25)
[2025-06-11] MEDS: XANAX 0.25 MG PO ×2 (10:34→20:12)
[2025-06-11] MEDS: NULYTELY SOLUTION 4 LITERS PO (10:34)
--- NOTE | 2025-06-11 11:47 | PTCARENOTE ---
Pt says he is feeling a little better today physically but not emotionally, he feels anxious. Dr Isaacs is aware and has ordered a dose of Xanax which was given. Colyte prep started after 2 bisacodyl tabs were given as ordered. Orthostatic VS
obtained. Pt is able to stand at bedside for about 10 min today without needing to sit down. He had some initial brief lightheadedness which subsided. His HR remained 80-90's while standing. Pt ambulated in room with assist, reyna well, at
bedside. This is a huge improvement from yesterday. Pt agrees to call for assist whenever getting OOB.
[2025-06-11 12:54] LABS: Glucose - Point of Care 117 mg/dl (70-99)
[2025-06-11 14:40] LABS: Hematocrit 27.9 % (39.0-52.0); Hemoglobin 9.9 g/dL (13.0-18.0)
--- NOTE | 2025-06-11 15:18 | PTCARENOTE ---
Pt c/o bilat neck pain, which he has chronically. Med w/ Tramadol 100 mg po as ordered.
[2025-06-11 17:23] LABS: Glucose - Point of Care 93 mg/dl (70-99)
[2025-06-11] MEDS: CRESTOR 10 MG PO (17:32)
--- NOTE | 2025-06-11 18:10 | PTCARENOTE ---
Pt nearly finished colyte prep, 1 cup remaining, reyna well. Having liquid stools, they were dark brown/black in color now clearing up to light briones. Denies lightheadedness, he does have some occasional nausea but no vomiting.
[2025-06-11 23:01] LABS: Glucose - Point of Care 99 mg/dl (70-99)
[2025-06-12] VITALS (24 sets, daily range): BP systolic 15–153; BP diastolic 48–95; PULSE 65–97; BMI 24.5
--- NOTE | 2025-06-12 00:40 | PTCARENOTE ---
2252: Tele monitor shows SR w/ PACs. Pt c/o chronic neck pain, PRN Ultram administered--see MAR for further details. Pt AAOx3, flat, and anxious. PRN Xanax given at 2:12. Pts at bedside. Patient instructed to remain NPO status for planned
colonoscopy/ EGD on 06/12. Pt ambulating w/ standby assist to the bathroom. Denies any lightheadedness or dizziness. Pt having yellow liquid stools. Aware of POC, call ty within reach.
--- NOTE | 2025-06-12 00:42 | PTCARENOTE ---
Tele monitor shows SR w/ PACs. Pt c/o chronic neck pain, PRN Ultram administered--see MAR for further details. Pt AAOx3, flat, and anxious. PRN Xanax given at 20:12. Pts at bedside. Patient instructed to remain NPO status for planned
colonoscopy/ EGD on 06/12. Pt ambulating w/ standby assist to the bathroom. Denies any lightheadedness or dizziness. Pt having yellow liquid stools. Aware of POC, call ty within reach.
--- NOTE | 2025-06-12 01:49 | PTCARENOTE ---
Pt rang call ty requiring assistance to go to the bathroom. Obtained BP sitting 115/74, and BP standing 95/57. Pt denies any lightheadedness or dizziness. Pt reports having blood on the toilet paper when wiping. Instructed pt to not flush, and
upon assessment.. Pts BM was liquid yellow w/ some blood tinged coloring. at bedside and aware. Pt remains NPO. Call ty within reach.
[2025-06-12] MEDS: ULTRAM 100 MG PO ×3 (04:44→18:17)
[2025-06-12 04:57] LABS: Hematocrit 25.4 % (39.0-52.0); Hemoglobin 8.9 g/dL (13.0-18.0); Mean Corp Hgb Conc. 35.0 g/dL (33.0-37.0); Mean Corpuscular Volume 89.1 fL (80.0-94.0); Platelet Count 258 10^3/uL (130-400); Red Cell Dist. Width 13.2 % (11.5-14.5)
[2025-06-12 05:12] LABS: Blood Urea Nitrogen 15 mg/dl (9-20); Calcium 8.6 mg/dl (8.4-10.2); Carbon Dioxide 25 mmol/L (22-30); Chloride 107 mmol/L (98-107); Estimated Creatinine Clearance 75 ml/min; Glucose 85 mg/dl (70-99); Potassium 4.0 mmol/L (3.5-5.1); Sodium 138 mmol/L (135-145); eGFR > 60.00
[2025-06-12 06:10] LABS: Glucose - Point of Care 94 mg/dl (70-99)
[2025-06-12] MEDS: NICODERM TRANSDERMAL 14 MG TRANSDERM (08:51)
[2025-06-12] MEDS: PROTONIX IV 40 MG IV (08:51)
[2025-06-12] MEDS: LOW STRENGTH ASPIRIN 81 MG PO (08:53)
[2025-06-12] MEDS: ZETIA PO (08:53)
[2025-06-12] MEDS: NSS (PRESERVATIVE FREE) 10 ML IV (08:53)
--- NOTE | 2025-06-12 09:52 | CM ---
Reviewed chart. Met with and Mrs. Hurtado to review discharge plans. He states prior to admission he resides with his spouse in a one story home without any steps to enter. He states he has a full flight of steps to get to bedroom/full
bathroom. She states he has a powder room on the first floor. He states prior to admission he was independent with ambulation and adls. He states he does not have any DME in the home. He states he has a prescription plan and uses [facility].
Medical work-up in progress. The discharge plan is to return home with his spouse when medically stable.
--- NOTE | 2025-06-12 09:55 | CON.CRS ---
Consultation
-
Date/Time Consultation Requested: 06/10/25 @16:12
Date/Time Consultation Performed: 06/12/25 @8:00
Requesting Provider: Shukri Isaacs MD
Performing Provider: Loreto Mays MD
Reason for Consultation: Anorectal mass
Medical History
-
Chief Complaint: Anorectal mass
History of Present Illness:
64-year-old male with diabetes, hypertension, and hyperlipidemia recently admitted with NSTEMI and underwent a cardiac stent (LAD and left circumflex) on 06/01/2025. There is residual RCA disease and there are future plans for RCA PCI. He was
discharged on Brilinta and aspirin. He had a near syncopal episode while moving his bowels and was brought to the emergency room on 06/10/2025. He does not recall any bleeding. He has a known perirectal mass for the past couple of years which is
slowly increased in size. His hemoglobin on 06/02/2025 was 13.4 g/dL and in the emergency room was 10.1 g/dL. Since admission is slowly drifted down to 8.9 g/dL today. He does have a history of intermittent bright blood per rectum. He has a
history of constipation but he denies any abdominal pain. His father had colon cancer in the patient underwent a colonoscopy approximately 10 years ago that was normal.
Past Medical History
Past Medical History: CAD, HTN, Hypercholesterolemia and NIDDM
Past Surgical History: None
Social History
Tobacco: Smoker (1 ppd)
Alcohol: Occasional
Drug: None
Personal:
Living: With Family
Family History
Family History: Cancer (Father with colon cancer)
Allergies / Home Medications
Allergy/AdvReac Type Severity Reaction Status Date / Time
No Known Allergies Allergy Verified 06/10/25 03:18
�Medication �Instructions �Recorded �Confirmed �Type
ezetimibe 10 mg tablet (Zetia) 10 mg PO DAILY 06/01/25 06/10/25 History
metformin 500 mg tablet 500 mg PO BID 06/01/25 06/10/25 History
tramadol 50 mg tablet 100 mg PO Q6HPRN PRN moderate pains 06/01/25 06/10/25 History
aspirin 81 mg chewable tablet 81 mg PO DAILY #1 tab 06/02/25 06/10/25 Rx
metoprolol succinate 25 mg 12.5 mg (1/2 x 25 mg) PO DAILY #9 06/02/25 06/10/25 Rx
tablet,extended release 24 hr tabs
rosuvastatin 20 mg tablet 20 mg PO QPM #90 tabs 06/02/25 06/10/25 Rx
ticagrelor 90 mg tablet (Brilinta) 90 mg PO BID #60 tabs 06/02/25 06/10/25 Rx
lisinopril 5 mg tablet 5 mg PO DAILY Heart 06/03/25 06/10/25 Rx
disease/condition #30 tabs
nicotine 14 mg/24 hr daily 1 patch transdermal DAILY 06/10/25 06/10/25 History
transdermal patch
Review of Systems
-
History Source: Patient
All other systems: Negative unless noted
A 10 point review of systems was completed, and was negative except as per HPI.
Physical Exam
Vital Signs
Temp 98 F 06/12/25 04:36
Pulse 95 06/12/25 09:08
Resp Rate 18 06/12/25 04:36
Blood pressure 135/70 06/12/25 09:08
SaO2 99 06/12/25 04:36
06/11/25 06/12/25 06/13/25
06:59 06:59 06:59
Actual Weight 72.8 kg 70.9 kg
Body Mass Index (BMI) 24.5
Lab Results / Allergies
06/12/25 04:40
06/12/25 04:40
WBC 6.9 10^3/uL (4.8-10.8) 06/12/25 04:40
Hgb 8.9 g/dL (13.0-18.0) L 06/12/25 04:40
Hct 25.4 % (39.0-52.0) L 06/12/25 04:40
Plt Count 258 10^3/uL (130-400) 06/12/25 04:40
Abs Immat Gran (auto) 0.0 10^3/uL (0-0.05) 06/10/25 03:33
Neutrophils % 73.7 % (42.2-75.2) 06/10/25 03:33
Allergy/AdvReac Type Severity Reaction Status Date / Time
No Known Allergies Allergy Verified 06/10/25 03:18
Physical Exam
General: Well Developed, Well Nourished and No Apparent Distress
HEENT: Anicteric
GI: Soft and Non Tender
Rectal: Other (Large fungating lesion involving the entire right side of the anus extending near circumferentially. It has appearance of a large condyloma with no obvious cancer. It is soft and nontender. There is no active bleeding.)
Neuro: Awake and Alert
Data Reviewed
-
CT Scan: Image Personally Visualized and interpreted, Report Reviewed by me, Discussed with Patient and Discussed with Family
Assessment / Plan
-
Large perianal condyloma.
I reviewed current findings as well as the treatment options. We discussed topical therapy versus excision. Due to the size of the lesion, I recommend an excision.
He is scheduled for a colonoscopy today and wishes to delay any surgery, which is not unreasonable given his recent cardiac events. There is no urgency to treatment as he has had this for a long time and I doubt it is the major source contributing
to his anemia.
Pending the colonoscopy results, I will follow him as an outpatient I provided my contact information. His was present, all questions answered.
[2025-06-12 10:19] LABS: Glucose - Point of Care 86 mg/dl (70-99)
[2025-06-12 12:11] LABS: Glucose - Point of Care 91 mg/dl (70-99)
[2025-06-12] MEDS: ZETIA 10 MG PO (12:14)
--- NOTE | 2025-06-12 13:15 | W.PN.HOSP.TC ---
Today's Communication/Plan
-
Resume Brilinta
Resume metoprolol, continue holding lisinopril monitor for recurrent hypotension
Follow CBC
B12
Assessment / Plan
Assessment / Plan
Impression
Presentation with presyncopal episodes.
Transient hypotension possibly related to continuation of anemia and antihypertensive regimen.
Acute/subacute blood loss anemia.
CAD/multivessel CAD with recent PCI to LAD and circumflex with residual RCA stenosis.
Diabetes type 2.
Tobacco use disorder.
Chronic pain requiring opioids
Plan
Acute/subacute blood loss anemia
Recent hemoglobin 13.
On presentation no evidence of acute blood loss.
Hemoglobin dipped down at 7.9.
EGD/colonoscopy 06/12 with no source of acute blood loss.
Impression is likely chronic and worsening anemia with chronic blood loss from rectal condyloma.
Status post PRBC transfusion on 06/12
Hemoglobin remains at 8s
Sufficient iron stores
Mild B12 deficiency
Cleared for diet as well as resumption of antiplatelet medications
Follow-up CBC in the morning
Rectal condyloma. Colorectal surgery input noted. Patient will follow-up for elective resection
CAD
Recent non-STEMI with PCI to LAD.
Preserved biventricular
Resume antiplatelet therapy.
Hypotension resolved
Resume metoprolol. Hold lisinopril.
Anxiety, not specified:
Will start Xanax as needed
Hyperlipidemia:
Continue statin and ezetimibe
Diabetes mellitus:
Insulin sliding scale
Hold metformin acutely
Chronic back pain including neck/ Chronic opioid dependence:
Continue tramadol as needed
DVT prophylaxis:
SCDs
CODE STATUS:
Full code
Anticipated Discharge: 24 - 48 hours
Subjective/Interval History
-
Date of Service: June 12, 2025
Objective Data
-
Labs:
Laboratory Results
06/12/25
04:40
WBC 6.9
Hgb 8.9 L
Hct 25.4 L
Plt Count 258
Sodium 138
Potassium 4.0
Chloride 107
Carbon Dioxide 25
BUN 15
Creatinine 0.9
Glucose 85
Calcium 8.6
Vital Signs:
Vital Signs
Temp Pulse Resp BP Pulse Ox
98.7 F 89 16 153/95 100
06/12/25 12:01 06/12/25 11:42 06/12/25 11:38 06/12/25 11:42 06/12/25 11:38
I&O
06/11/25 06/12/25 06/13/25
06:59 06:59 06:59
Intake Total 250 / 250 240 / 240 120 / 120
Output Total 1225 / 1225
Balance -975 / -975 240 / 240 120 / 120
Physical Exam
-
General: Well Developed and No Apparent Distress
HEENT: Normocephalic, Atraumatic and Moist Mucous Membranes
Respiratory: Clear to Auscultation
Cardiac: Regular Rhythm and S1/S2; Negative Murmur, Rub or Gallop
GI: Soft, Nontender, Nondistended and Normal Bowel Sounds; Negative Organomegaly
Rectal: Deferred by Provider
Musculoskeletal: No Clubbing, No Cyanosis and No Edema
Skin: Negative Rash
Neuro: Nonfocal/Grossly Intact
[2025-06-12] MEDS: TOPROL XL 12.5 MG PO (14:57)
[2025-06-12] MEDS: CYANOCOBALAMIN 1000 MCG IM (14:57)
[2025-06-12] MEDS: BRILINTA 90 MG PO ×2 (14:58→20:24)
--- NOTE | 2025-06-12 16:21 | W.PN.CD ---
Today's Communication / Plan
-
Monitor for further GI blood loss with restarting ticagrelor.
LR 500 mL.
Orthostatic vital signs q shift.
Check 8AM cortisol.
If orthostasis continues, we will consider repeat transfusion, vasoconstrictors.
Monitor telemetry given syncope.
If blood loss continues, we will need to consider other sources of blood loss, inpatient condyloma excision.
Impression / Plan
-
Impression/Plan: 64 y/o male with HLD, DM2 and CAD with recent NSTEMI s/p PCI of LAD/LCx (no surgical LAD target) with plans for RCA PCI admitted with an episode of syncope while moving bowels, found to have acute blood loss anemia and an anorectal
condyloma, now with orthostatic hypotension.
#Dizziness, diaphoresis, orthostatic hypotension/syncope
-Acute, resolved now with IVF.
-Monitor telemetry, but seems likely related to vasovagal/acute blood loss.
-LR 500 mL now. Orthostatic vital signs q shift.
-If orthostasis persists inspite of adequate volume resuscitation, we will consider vasoconstrictors (midodrine), repeat transfusion. In the mean time, check 8AM cortisol.
#Suspected acute blood loss anemia
-Acute, threat to life.
-Hbg down to 8.9.
-Suspected GI bleed without clear source. EGD shows hiatal hernia. Colonoscopy shows internal hemorrhoids and diverticulosis without stigmata of bleeding. There is a polyp, but biopsy deferred.
-Rectal mass/condyloma evaluated by CRS. Could be source, but seems somewhat chronic.
-CT scan was performed 06/10/2025 no evidence of retroperitoneal or intra-abdominal bleeding.
-Complex issue in patient with recent coronary PCI (large stent burden). Due to concern for presentation with hypotension dropping hemoglobin and concern for active bleeding, ticagrelor held 06/10/2025.
-Patient maintained on aspirin and cangrelor to mitigate bleeding risk while maintaining DAPT.
-Resume aspirin/ticagrelor when safe with GI.
-If blood loss continues, it may compel us to act on anorectal condyloma sooner vs. evaluate for other sources of blood loss.
#CAD with recent NSTEMI:
-Acute on chronic.
-S/P IVUS guided PCI of culprit dLAD and mLAD (overlapping Medtronic [place] 2.25 x 34 KRISS, 2.5 x 22 KRISS, post dilated with 2.25 NCB throughout, 2.5 NCB in the mid/proximal stent and 3.0 x 12 NCB in the proximal margin) with reduction in
stenosis to 0%, maintaining EMILY III flow. S/P PCI of tandem 60-70% and 80% dLCx lesions (Medtronic [place] 3.0 x 34 KRISS, post dilated with 3.0 NCB) with reduction in stenosis to 0%, maintaining EMILY III flow. Residual proximal LAD disease
(likely non-obstructive) and obstructive proximal/mid RCA disease remain. Staged PCI of RCA planned.
-Echocardiogram 06/02/25 with EF 55%, LAD wall motion changes (mild to mod HK of mid anterior, mid anteroseptal and most of the apex-apical anterior, inferior and lateral apex), no sig valve disease.
-Plan for DAPT as above.
-OMT/GDMT as tolerated.
#Dyslipidemia
-Chronic, stable.
-Recent LDL 182.
-Continue rosuvastatin and ezetimibe. Goal LDL < 55.
#NIDDM2
-Chronic, stable.
-Recent HbA1c 6.2%.
-Metformin as OP.
#Tobacco abuse:
-Continued abstinence.
Subjective/Interval History:
Hematochezia with orthostatic hypotension per nursing notes this morning (01:49).
EGD shows a hiatal hernia without other obvious pathology.
Colonoscopy shows internal hemorrhoids and diverticulosis without stigmata of recent bleeding.
Hypotensive to 85/52 this afternoon. Remains orthostatic.
GI started B12.
Ticagrelor given at 14:58.
Hbg dropped form 9.9 -> 8.9
Data:
Cardiac Catheterization/PCI, 06/01/2025:
1. Right dominant circulation with severe, multivessel disease including tandem 70-80% lesions in the proximal and mid RCA, a 60% lesion in the distal circumflex followed by an underappreciated 70-80% lesion in the distal circumflex, a 70% mid LAD
lesion and a group of 90% lesions spanning the origin of the second diagonal and leading into a small, terminal LAD, not a candidate for surgical revascularization, status post successful IVUS guided PCI of the mid and distal LAD lesions
(overlapping Medtronic [place] 2.25 x 34 KRISS, 2.5 x 22 KRISS, postdilated with a 2.25 and 2.5 NC balloon throughout and a 3.0 x 12 NC balloon in the proximal margin) and successful PCI of the tandem distal circumflex lesions (Medtronic [place] 3.0 x 34 KRISS, postdilated with a 3.0 NC balloon) with reduction in stenoses to 0%, maintaining EMILY-3 flow.
2. Normal filling pressures (LVEDP = 5 mmHg at 74.4 kg).
TTE, 06/02/25:
Normal left ventricular size, wall thickness and global systolic function, LVEF 55%.
LAD wall motion changes: mild to moderate hypokinesis of the mid anterior, mid anteroseptal, and most of the apex (apical anterior, inferior, and lateral apex).
No significant valvular disease.
CT Abdomen/Pelvis, 06/10/2025:
IMPRESSION:
No findings to suggest retroperitoneal hemorrhage.
Small hiatal hernia.
EGD, 06/12/2025:
Impression:
- Normal esophagus.
- 4 cm hiatal hernia.
- Normal examined duodenum.
- No specimens collected.
Colonoscopy, 06/12/2025:
Impression:
- Non-bleeding internal hemorrhoids.
- Diverticulosis in the sigmoid colon and in the descending colon.
- The examination was otherwise normal.
- Partially obstructing mass at the external anus.
- 5mm polyp in rectum. Biopsies deferred.
- No old or fresh blood seen.
- No specimens collected.
Physical Exam
Vital Signs/Labs
Vital Signs
Temp Pulse Resp BP Pulse Ox
36.9 C 69 18 108/56 100
06/12/25 16:10 06/12/25 16:10 06/12/25 16:10 06/12/25 16:00 06/12/25 16:10
06/11/25 06/12/25 06/13/25
11:59 11:59 11:59
Actual Weight 72.8 kg 70.9 kg
06/12/25 04:40
06/12/25 04:40
PT 14.4 Sec (11.4-14.6) 06/10/25 03:33
INR 1.09 06/10/25 03:33
APTT 28.8 Sec (23.4-35.0) 06/10/25 03:33
Magnesium 2.0 mg/dl (1.6-2.3) 06/10/25 03:33
TSH 3.00 uIU/ml (0.47-4.68) 06/10/25 03:33
06/10/25
03:33
Luj-X-Agqwdfnmxez Pept 454
LAB Results
06/10/25 06/10/25 06/10/25
03:33 06:41 09:12
Troponin I 0.016 0.014 0.016
Physical Exam
Constitutional: No acute distress and Comfortable
EENT: Anicteric and Moist mucous membranes
Cardiovascular: Rhythm & rate is regular, Pedal edema is absent, JVD pressure is normal, S1S2 is normal and Murmur/rub/gallop absent
Respiratory: Respiratory effort normal, Lungs clear to auscul., Wheeze Absent, Crackles Absent and Rhonchi Absent
GI: Soft, Distention absent, Flat, Non tender and Normal bowel sounds
Neuro/Psych: AO x 3
Data Reviewed
-
Date of Service: June 12, 2025
Medical Decision Making: Reviewed Test Results, Independent Historian Assessment and Test Interpretation
EKG: Tracing Personally Visualized and interpreted and Report Reviewed by me
Echo: Report Reviewed by me
X-Ray/CT/US/MRI/NUC/PET: Image Personally Visualized and interpreted and Report Reviewed by me
Medical Tests (PFT, Pathology etc): Image Personally Visualized and interpreted and Report Reviewed by me
Labs: Labs Reviewed by me
[2025-06-12] MEDS: LR 500 IV (18:11)
[2025-06-12] MEDS: CRESTOR 10 MG PO (18:18)
--- NOTE | 2025-06-12 18:27 | PTCARENOTE ---
pt continues to be sr on the monitor, hr in the 70s, vss. pt c/o pain in neck, tramadol given as ordered, see MAR. pt denies any bloody stool since colonoscopy. ivf started per order, see MAR. pt educated on plan of care and pt verbalized
understanding. call ty within reach.
--- NOTE | 2025-06-12 19:07 | PTCARENOTE ---
pt continues to be sr on the monitor, hr in the 80s, vss. right groin sheath is intact, right radial sheath is cdi. last act was 189. pt resting flat in bed, educated on plan of care and pt verbalized understanding. pt call ty within reach.
[2025-06-12 20:13] LABS: Glucose - Point of Care 133 mg/dl (70-99)
[2025-06-12] MEDS: XANAX 0.25 MG PO (21:44)
[2025-06-12 23:04] LABS: Glucose - Point of Care 212 mg/dl (70-99)
[2025-06-13] VITALS (15 sets, daily range): BP systolic 109–155; BP diastolic 57–81; PULSE 73–84; BMI 24.6
--- NOTE | 2025-06-13 02:59 | DOWNTIME ---
There was a [employer] Downtime on 06/13/2025 from 0100 to 06/13/2025 at 0220. Downtime documentation of patient's care, including medication administrations, has been reconciled in the electronic record per guidelines. Refer to the
patient's paper chart under the miscellaneous tab to see printed paper medication records and downtime forms.
[2025-06-13] MEDS: ULTRAM 100 MG PO ×2 (04:52→14:56)
[2025-06-13 05:21] LABS: Hematocrit 24.6 % (39.0-52.0); Hemoglobin 8.8 g/dL (13.0-18.0); Mean Corp Hgb Conc. 35.8 g/dL (33.0-37.0); Mean Corpuscular Volume 88.8 fL (80.0-94.0); Nucleated Red Blood Cells % 0 % (-); Platelet Count 127 10^3/uL (130-400); Red Cell Dist. Width 12.9 % (11.5-14.5)
[2025-06-13 08:51] LABS: Glucose - Point of Care 128 mg/dl (70-99)
[2025-06-13] MEDS: CYANOCOBALAMIN 1000 MCG IM (09:07)
[2025-06-13] MEDS: TOPROL XL 12.5 MG PO (09:08)
[2025-06-13] MEDS: NICODERM TRANSDERMAL 14 MG TRANSDERM (09:08)
[2025-06-13] MEDS: PROTONIX 40 MG PO (09:08)
[2025-06-13] MEDS: ZETIA 10 MG PO (09:09)
[2025-06-13] MEDS: LOW STRENGTH ASPIRIN 81 MG PO (09:09)
[2025-06-13] MEDS: BRILINTA 90 MG PO ×2 (09:09→19:23)
--- NOTE | 2025-06-13 10:09 | W.PN.CD ---
Today's Communication / Plan
-
Monitor hgb for 1 more day on ASA/Ticag
If hgb stable tomorrow and he remains asymptomatic, dc tomorrow
Impression / Plan
-
Impression/Plan: 64 y/o male with HLD, DM2 and CAD with recent NSTEMI s/p PCI of LAD/LCx (no surgical LAD target) with plans for RCA PCI admitted with an episode of syncope while moving bowels, found to have acute blood loss anemia and an anorectal
condyloma, now with orthostatic hypotension.
#Dizziness, diaphoresis, orthostatic hypotension/syncope
-Acute, resolved now with IVF.
-Monitor telemetry, but seems likely related to vasovagal/acute blood loss.
-If orthostasis persists in spite of adequate volume resuscitation, we will consider vasoconstrictors (midodrine), repeat transfusion.
#Suspected acute blood loss anemia
-Hbg down to 8.9.
-EGD shows hiatal hernia. Colonoscopy shows internal hemorrhoids and diverticulosis without stigmata of bleeding. There is a polyp, but biopsy deferred.
-Rectal mass/condyloma evaluated by CRS. Could be source, but seems somewhat chronic.
-CT scan was performed 06/10/2025 no evidence of retroperitoneal or intra-abdominal bleeding.
-Complex issue in patient with recent coronary PCI (large stent burden). Due to concern for presentation with hypotension dropping hemoglobin and concern for active bleeding, ticagrelor held 06/10/2025.
-Continue to monitor hemoglobin and ASA and Ticagrelor. If stable tomorrow, could be discharged.
#CAD with recent NSTEMI:
-Acute on chronic.
-S/P IVUS guided PCI of culprit dLAD and mLAD (overlapping Medtronic [place] 2.25 x 34 KRISS, 2.5 x 22 KRISS, post dilated with 2.25 NCB throughout, 2.5 NCB in the mid/proximal stent and 3.0 x 12 NCB in the proximal margin) with reduction in
stenosis to 0%, maintaining EMILY III flow. S/P PCI of tandem 60-70% and 80% dLCx lesions (Medtronic [place] 3.0 x 34 KRISS, post dilated with 3.0 NCB) with reduction in stenosis to 0%, maintaining EMILY III flow. Residual proximal LAD disease
(likely non-obstructive) and obstructive proximal/mid RCA disease remain. Staged PCI of RCA planned.
-Echocardiogram this admission with no RWMA and normal LVEF
-Plan for DAPT as above.
-OMT/GDMT as tolerated.
#Dyslipidemia
-Chronic, stable.
-Recent LDL 182.
-Continue rosuvastatin and ezetimibe. Goal LDL < 55.
#NIDDM2
-Chronic, stable.
-Recent HbA1c 6.2%.
-Metformin as OP.
#Tobacco abuse:
-Continued abstinence.
Subjective/Interval History:
Small amount of blood on toilet paper when wiping. Otherwise no bleeding.
No orthostatic symptoms.
Data:
Cardiac Catheterization/PCI, 06/01/2025:
1. Right dominant circulation with severe, multivessel disease including tandem 70-80% lesions in the proximal and mid RCA, a 60% lesion in the distal circumflex followed by an underappreciated 70-80% lesion in the distal circumflex, a 70% mid LAD
lesion and a group of 90% lesions spanning the origin of the second diagonal and leading into a small, terminal LAD, not a candidate for surgical revascularization, status post successful IVUS guided PCI of the mid and distal LAD lesions
(overlapping Medtronic [place] 2.25 x 34 KRISS, 2.5 x 22 KRISS, postdilated with a 2.25 and 2.5 NC balloon throughout and a 3.0 x 12 NC balloon in the proximal margin) and successful PCI of the tandem distal circumflex lesions (Medtronic [place] 3.0 x 34 KRISS, postdilated with a 3.0 NC balloon) with reduction in stenoses to 0%, maintaining EMILY-3 flow.
2. Normal filling pressures (LVEDP = 5 mmHg at 74.4 kg).
TTE, 06/02/25:
Normal left ventricular size, wall thickness and global systolic function, LVEF 55%.
LAD wall motion changes: mild to moderate hypokinesis of the mid anterior, mid anteroseptal, and most of the apex (apical anterior, inferior, and lateral apex).
No significant valvular disease.
CT Abdomen/Pelvis, 06/10/2025:
IMPRESSION:
No findings to suggest retroperitoneal hemorrhage.
Small hiatal hernia.
EGD, 06/12/2025:
Impression:
- Normal esophagus.
- 4 cm hiatal hernia.
- Normal examined duodenum.
- No specimens collected.
Colonoscopy, 06/12/2025:
Impression:
- Non-bleeding internal hemorrhoids.
- Diverticulosis in the sigmoid colon and in the descending colon.
- The examination was otherwise normal.
- Partially obstructing mass at the external anus.
- 5mm polyp in rectum. Biopsies deferred.
- No old or fresh blood seen.
- No specimens collected.
Physical Exam
Vital Signs/Labs
Vital Signs
Temp Pulse Resp BP Pulse Ox
98.5 F 71 16 154/81 99
06/13/25 08:32 06/13/25 09:08 06/13/25 08:32 06/13/25 09:08 06/13/25 08:32
06/12/25 06/13/25 06/14/25
06:59 06:59 06:59
Actual Weight 156 lb 4.924 oz 157 lb 3.033 oz
06/13/25 04:35
06/12/25 04:40
PT 14.4 Sec (11.4-14.6) 06/10/25 03:33
INR 1.09 06/10/25 03:33
APTT 28.8 Sec (23.4-35.0) 06/10/25 03:33
Magnesium 2.0 mg/dl (1.6-2.3) 06/10/25 03:33
TSH 3.00 uIU/ml (0.47-4.68) 06/10/25 03:33
06/10/25
03:33
Ako-R-Mygoklwydst Pept 454
Physical Exam
Constitutional: No acute distress and Comfortable
Cardiovascular: Rhythm & rate is regular, Pedal edema is absent, S1S2 is normal and Murmur/rub/gallop absent
Respiratory: Respiratory effort normal and Lungs clear to auscul.
Neuro/Psych: AO x 3
Data Reviewed
-
Date of Service: June 13, 2025
Medical Decision Making: Reviewed Test Results, Independent Historian Assessment, Test Interpretation and Review of Case with other Provider
EKG: Tracing Personally Visualized and interpreted
Echo: Report Reviewed by me
Labs: Labs Reviewed by me
--- NOTE | 2025-06-13 11:04 | CM ---
Reviewed chart. Met with and Mrs. Hurtado to review discharge plans. He states he is feeling well and maybe able to go home soon. Prior to admission he resides with his spouse in a two story home without any steps to enter. He has a full
flight of steps to get to bedroom/full bathroom. He has a powder room on the first floor. Prior to admission he was independent with ambulation and adls. He does not have any DME in the home. He has a prescription plan and uses [facility].
Medical wok-up in progress. The discharge plan is to return home with his spouse when medically stable.
[2025-06-13 11:57] LABS: Glucose - Point of Care 250 mg/dl (70-99)
--- NOTE | 2025-06-13 14:47 | W.PN.HOSP.TC ---
Today's Communication/Plan
-
Hemoglobin plateaued at 8.8.
Noted with mild decreased platelet count likely dilutional with transfusions
BP remains stable while metoprolol and off lisinopril.
Monitor hemoglobin, CBC in AM.
Assessment / Plan
Assessment / Plan
Impression
Presentation with presyncopal episodes.
Transient hypotension possibly related to continuation of anemia and antihypertensive regimen.
Acute/subacute blood loss anemia.
CAD/multivessel CAD with recent PCI to LAD and circumflex with residual RCA stenosis.
Diabetes type 2.
Tobacco use disorder.
Chronic pain requiring opioids
Plan
Acute/subacute blood loss anemia
Recent hemoglobin 13.
On presentation no evidence of acute blood loss.
Hemoglobin dipped down at 7.9.
EGD/colonoscopy 06/12 with no source of acute blood loss.
Impression is likely chronic and worsening anemia with chronic blood loss from rectal condyloma.
Status post PRBC transfusion on 06/12
Hemoglobin remains at 8s
Sufficient iron stores
Mild B12 deficiency
Cleared for diet as well as resumption of antiplatelet medications
Follow-up CBC in the morning
Rectal condyloma. Colorectal surgery input noted. Patient will follow-up for elective resection
CAD
Recent non-STEMI with PCI to LAD.
Preserved biventricular
Resume antiplatelet therapy.
Hypotension resolved
Resume metoprolol. Hold lisinopril.
Anxiety, not specified:
Will start Xanax as needed
Hyperlipidemia:
Continue statin and ezetimibe
Diabetes mellitus:
Insulin sliding scale
Hold metformin acutely
Patient reports recent hemoglobin A1c 5.7 which is in prediabetic range.
Remains euglycemic while hospitalized.
Chronic back pain including neck/ Chronic opioid dependence:
Continue tramadol as needed
DVT prophylaxis:
SCDs
CODE STATUS:
Full code
Anticipated Discharge: Within 24 hours
Subjective/Interval History
-
Date of Service: June 13, 2025
Objective Data
-
Labs:
Laboratory Results
06/13/25
04:35
WBC 6.1
Hgb 8.8 L
Hct 24.6 L
Plt Count 127 L D
Vital Signs:
Vital Signs
Temp Pulse Resp BP Pulse Ox
98.8 F 66 18 116/58 100
06/13/25 11:24 06/13/25 11:23 06/13/25 11:24 06/13/25 11:23 06/13/25 11:24
I&O
06/12/25 06/13/25 06/14/25
06:59 06:59 06:59
Intake Total 240 / 240 320 / 320
Balance 240 / 240 320 / 320
Physical Exam
-
General: Well Developed and No Apparent Distress
HEENT: Normocephalic, Atraumatic and Moist Mucous Membranes
Respiratory: Clear to Auscultation
Cardiac: Regular Rhythm and S1/S2; Negative Murmur, Rub or Gallop
GI: Soft, Nontender, Nondistended and Normal Bowel Sounds; Negative Organomegaly
Rectal: Deferred by Provider
Musculoskeletal: No Clubbing, No Cyanosis and No Edema
Skin: Negative Rash
Neuro: Nonfocal/Grossly Intact
[2025-06-13 16:46] LABS: Glucose - Point of Care 108 mg/dl (70-99)
[2025-06-13] MEDS: CRESTOR 10 MG PO (17:57)
--- NOTE | 2025-06-13 19:30 | PTCARENOTE ---
Platelet level 127. notified. CBC ordered for the am. Will monitor.
[2025-06-13 22:13] LABS: Glucose - Point of Care 134 mg/dl (70-99)
[2025-06-13] MEDS: XANAX 0.25 MG PO (22:22)
--- NOTE | 2025-06-13 22:44 | PTCARENOTE ---
Rec'd pt at change of shift. Pt AAO*3, VSS, and SR on TELE monitor. Pt denies nay pain or discomfort but reports increased anxiety, PRN Xanax given as ordered. Pt resting with call ty in reach. See MAR and flowchart for full pt care and
assessment.
[2025-06-14 03:46] VITALS: BMI 24.8
[2025-06-14 03:47] VITALS: BP 139/91
[2025-06-14 03:48] VITALS: BP 138/91
[2025-06-14] MEDS: ULTRAM 100 MG PO (03:51)
[2025-06-14 04:16] LABS: Hematocrit 28.8 % (39.0-52.0); Hemoglobin 9.9 g/dL (13.0-18.0); Mean Corp Hgb Conc. 34.4 g/dL (33.0-37.0); Mean Corpuscular Volume 90.3 fL (80.0-94.0); Nucleated Red Blood Cells % 0 % (-); Platelet Count 347 10^3/uL (130-400); Red Cell Dist. Width 12.9 % (11.5-14.5)
[2025-06-14 04:32] LABS: Blood Urea Nitrogen 10 mg/dl (9-20); Calcium 9.3 mg/dl (8.4-10.2); Carbon Dioxide 30 mmol/L (22-30); Chloride 105 mmol/L (98-107); Estimated Creatinine Clearance 68 ml/min; Glucose 121 mg/dl (70-99); Potassium 3.9 mmol/L (3.5-5.1); Sodium 139 mmol/L (135-145); eGFR > 60.00
[2025-06-14 05:05] LABS: Cortisol, Random 12.2 ug/dl
[2025-06-14 07:42] VITALS: BP 132/74
[2025-06-14] MEDS: CYANOCOBALAMIN IM (08:27)
[2025-06-14] MEDS: PROTONIX 40 MG PO (08:27)
[2025-06-14] MEDS: NICODERM TRANSDERMAL 14 MG TRANSDERM (08:27)
[2025-06-14] MEDS: TOPROL XL 12.5 MG PO (08:27)
[2025-06-14] MEDS: LOW STRENGTH ASPIRIN 81 MG PO (08:28)
[2025-06-14] MEDS: BRILINTA 90 MG PO (08:28)
[2025-06-14] MEDS: ZETIA 10 MG PO (08:28)
--- NOTE | 2025-06-14 08:43 | W.PN.CD ---
Addendum entered and electronically signed by Myron Ochoa MD 06/14/25 09:05:
I saw and examined the patient.
The PEN RULER OPERATOR's note was reviewed and I agree with the note.
Comment:
64 y/o male with HLD, DM2 and CAD with recent NSTEMI s/p PCI of LAD/LCx (no surgical LAD target) with plans for RCA PCI admitted with an episode of syncope while moving bowels, found to have acute blood loss anemia and an anorectal condyloma.
Hemoglobin is stable with resuming Brilinta and he is asymptomatic from a cardiovascular standpoint.
Physical exam with regular rate and rhythm, no murmurs, clear lungs, and no lower extremity edema
He is stable for discharge from a cardiovascular standpoint. He should be continued on his aspirin and Brilinta for recent NSTEMI with PCI. I explained to him that his colorectal surgery will have to wait for at least 6-12 months from his NSTEMI.
His lisinopril has been stopped due to orthostatic hypotension. We should consider resuming as an outpatient if blood pressures are high again. Continue Zetia, statin, and metoprolol.
Original Note:
Today's Communication / Plan
-
-continue DAPT. Continue metoprolol. Remain off lisinopril for now. Should follow-up hgb as OP with PCP.
-Ambulate today and if continues to feel improved, okay for d/c. Follow-up in office arranged.
Impression / Plan
-
Impression/Plan: 64 y/o male with HLD, DM2 and CAD with recent NSTEMI s/p PCI of LAD/LCx (no surgical LAD target) with plans for RCA PCI admitted with an episode of syncope while moving bowels, found to have acute blood loss anemia and an anorectal
condyloma.
#Dizziness, diaphoresis, orthostatic hypotension/syncope:
-improved with fluids and blood
-tele stable, echo normal
#Anemia:
-now stable, received 1 unit PRBC this admit
-EGD shows hiatal hernia. Colonoscopy shows internal hemorrhoids and diverticulosis without stigmata of bleeding. There is a polyp, but biopsy deferred.
-Rectal mass/condyloma evaluated by CRS. Could be source, but seems somewhat chronic. Surgery at some point as OP.
-CT scan was performed 06/10/2025 no evidence of retroperitoneal or intra-abdominal bleeding.
#CAD with recent NSTEMI:
-S/P IVUS guided PCI of culprit dLAD and mLAD (overlapping Medtronic [place]esar [place] 2.25 x 34 KRISS, 2.5 x 22 KRISS, post dilated with 2.25 NCB throughout, 2.5 NCB in the mid/proximal stent and 3.0 x 12 NCB in the proximal margin) with reduction in
stenosis to 0%, maintaining EMILY III flow. S/P PCI of tandem 60-70% and 80% dLCx lesions (Medtronic [place] 3.0 x 34 KRISS, post dilated with 3.0 NCB) with reduction in stenosis to 0%, maintaining EMILY III flow. Residual proximal LAD disease
(likely non-obstructive) and obstructive proximal/mid RCA disease remain. Staged PCI of RCA planned.
-Echocardiogram this admission with no RWMA and normal LVEF
-continue DAPT with ASA and Brilinta. Continue metoprolol. Remain off ACEI for now. Continue statin.
-OMT/GDMT as tolerated.
#Dyslipidemia
-Chronic, stable.
-Recent LDL 182.
-Continue rosuvastatin and ezetimibe. Goal LDL < 55.
#NIDDM2
-Chronic, stable.
-Recent HbA1c 6.2%.
-Metformin as OP.
#Tobacco abuse:
-Continued abstinence.
Subjective/Interval History:
Feeling improved.
Data:
Cardiac Catheterization/PCI, 06/01/2025:
1. Right dominant circulation with severe, multivessel disease including tandem 70-80% lesions in the proximal and mid RCA, a 60% lesion in the distal circumflex followed by an underappreciated 70-80% lesion in the distal circumflex, a 70% mid LAD
lesion and a group of 90% lesions spanning the origin of the second diagonal and leading into a small, terminal LAD, not a candidate for surgical revascularization, status post successful IVUS guided PCI of the mid and distal LAD lesions
(overlapping Medtronic [place] 2.25 x 34 KRISS, 2.5 x 22 KRISS, postdilated with a 2.25 and 2.5 NC balloon throughout and a 3.0 x 12 NC balloon in the proximal margin) and successful PCI of the tandem distal circumflex lesions (Medtronic Cesar
[place] 3.0 x 34 KRISS, postdilated with a 3.0 NC balloon) with reduction in stenoses to 0%, maintaining EMILY-3 flow.
2. Normal filling pressures (LVEDP = 5 mmHg at 74.4 kg).
TTE, 06/02/25:
Normal left ventricular size, wall thickness and global systolic function, LVEF 55%.
LAD wall motion changes: mild to moderate hypokinesis of the mid anterior, mid anteroseptal, and most of the apex (apical anterior, inferior, and lateral apex).
No significant valvular disease.
CT Abdomen/Pelvis, 06/10/2025:
IMPRESSION:
No findings to suggest retroperitoneal hemorrhage.
Small hiatal hernia.
EGD, 06/12/2025:
Impression:
- Normal esophagus.
- 4 cm hiatal hernia.
- Normal examined duodenum.
- No specimens collected.
Colonoscopy, 06/12/2025:
Impression:
- Non-bleeding internal hemorrhoids.
- Diverticulosis in the sigmoid colon and in the descending colon.
- The examination was otherwise normal.
- Partially obstructing mass at the external anus.
- 5mm polyp in rectum. Biopsies deferred.
- No old or fresh blood seen.
- No specimens collected.
Physical Exam
Vital Signs/Labs
Vital Signs
Temp Pulse Resp BP Pulse Ox
98.3 F 73 20 132/74 98
06/14/25 07:41 06/14/25 08:27 06/14/25 07:41 06/14/25 08:27 06/14/25 07:41
06/13/25 06/14/25 06/15/25
06:59 06:59 06:59
Actual Weight 71.3 kg 71.7 kg
06/14/25 03:54
06/14/25 03:54
PT 14.4 Sec (11.4-14.6) 06/10/25 03:33
INR 1.09 06/10/25 03:33
APTT 28.8 Sec (23.4-35.0) 06/10/25 03:33
Magnesium 2.0 mg/dl (1.6-2.3) 06/10/25 03:33
TSH 3.00 uIU/ml (0.47-4.68) 06/10/25 03:33
06/10/25
03:33
Tdh-T-[id number] Pept 454
Physical Exam
Constitutional: No acute distress
EENT: Anicteric
Cardiovascular: Rhythm & rate is regular
Respiratory: Respiratory effort normal and Lungs clear to auscul.
Neuro/Psych: AO x 3
Data Reviewed
-
Date of Service: June 14, 2025
EKG: Other (SR)
Medical Tests (PFT, Pathology etc): Report Reviewed by me (echo as noted)
Labs: Labs Reviewed by me
--- NOTE | 2025-06-14 10:26 | CM ---
Reviewed chart. Met with and Mrs. Hurtado to review discharge plans. He states he is feeling better but tired. He states he maybe able to go home. Prior to admission he resides with his spouse in a two story home without any steps to enter.
He has a full flight of steps to get to bedroom/full bathroom. He has a powder room on the first floor. Prior to admission he was independent with ambulation and adls. He mcgregor not have any DME in the home. He has a prescription plan and uses [facility]. Medical work-up in progress. The discharge plan is to return home with his spouse when medically stable.
[2025-06-14 11:18] VITALS: BP 132/81
--- NOTE | 2025-06-14 11:24 | PTCARENOTE ---
Reviewed plan of care w/ pt.
--- NOTE | 2025-06-14 11:30 | W.DS.TRANS ---
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
-
Discharge Instructions:
Discharge Diagnosis/Procedures Presentation with presyncopal episodes.
Transient hypotension possibly related to
continuation of anemia and antihypertensive
regimen.
Acute/subacute blood loss anemia.
CAD/multivessel CAD with recent PCI to LAD and
circumflex with residual RCA stenosis.
Diabetes type 2.
Tobacco use disorder.
Chronic pain requiring opioids
Diet Regular
Instructions:
Stand-Alone Forms: Return to Work
Changes to Home Medications: Yes
Discharge Medications:
DC Medications w/original date entered in tok tok tok
ezetimibe 10 mg tablet (Zetia) 10 mg PO DAILY High Cholesterol 06/01/25
metformin 500 mg tablet 500 mg PO BID Diabetes 06/01/25
tramadol 50 mg tablet 100 mg PO Q6HPRN PRN moderate pains 06/01/25
aspirin 81 mg chewable tablet 81 mg PO DAILY #1 tab 06/02/25
metoprolol succinate 25 mg tablet,extended release 24 hr 12.5 mg (1/2 x 25 mg) PO DAILY #9 tabs 06/02/25
rosuvastatin 20 mg tablet 20 mg PO QPM #90 tabs 06/02/25
ticagrelor 90 mg tablet (Brilinta) 90 mg PO BID #60 tabs 06/02/25
nicotine 14 mg/24 hr daily transdermal patch 1 patch transdermal DAILY Tobacco Use 06/10/25
pantoprazole 40 mg tablet,delayed release 40 mg PO DAILY #30 tabs 06/14/25
Home Medication Changes
Protonix added
Lisinopril stopped
Pending Results: No
== END 2025-06-14 12:40 | disposition home or self-care (01) | DRG 811 ==
LOC: IVU 13:09
PROVIDERS: Hospitalist; Nurse Practitioner; Nurse Practitioner Family; ADMITTING PHYSICIAN Internal Medicine; ATTENDING PHYSICIAN Internal Medicine; CONSULT PHYSICIAN Internal Medicine Cardiovascular Disease; CONSULT PHYSICIAN Internal Medicine Gastroenterology; CONSULT PHYSICIAN Surgery; EMERGENCY PHYSICIAN Emergency Medicine; FAMILY PHYSICIAN Family Medicine
PROC: 30233N1 Transfusion of Nonautologous Red Blood Cells into Peripheral Vein, Percutaneous Approach (ICD-10-PCS; 2025-06-11)
PROC: 0DJ08ZZ Inspection of Upper Intestinal Tract, Via Natural or Artificial Opening Endoscopic (ICD-10-PCS; 2025-06-12)
PROC: 0DJD8ZZ Inspection of Lower Intestinal Tract, Via Natural or Artificial Opening Endoscopic (ICD-10-PCS; 2025-06-12)
DX: D50.0 Iron deficiency anemia secondary to blood loss (chronic) (principal); I21.4 Non-ST elevation (NSTEMI) myocardial infarction; I25.10 Atherosclerotic heart disease of native coronary artery without angina pectoris; Z95.5 Presence of coronary angioplasty implant and graft; E11.9 Type 2 diabetes mellitus without complications; G89.29 Other chronic pain; Z79.891 Long term (current) use of opiate analgesic; K44.9 Diaphragmatic hernia without obstruction or gangrene; K64.8 Other hemorrhoids; K62.1 Rectal polyp; K57.30 Diverticulosis of large intestine without perforation or abscess without bleeding; D49.0 Neoplasm of unspecified behavior of digestive system; I10 Essential (primary) hypertension; I25.2 Old myocardial infarction; Z82.49 Family history of ischemic heart disease and other diseases of the circulatory system; Z79.82 Long term (current) use of aspirin; E78.00 Pure hypercholesterolemia, unspecified; F17.210 Nicotine dependence, cigarettes, uncomplicated; I49.3 Ventricular premature depolarization; Z79.02 Long term (current) use of antithrombotics/antiplatelets; Z79.84 Long term (current) use of oral hypoglycemic drugs; Z79.899 Other long term (current) drug therapy; Z85.038 Personal history of other malignant neoplasm of large intestine
CPT/HCPCS: 74176; 80048; 80053; 82533; 82607; 82728; 82746; 82962; 83540; 83550; 83735; 83880; 84443; 84484; 85014; 85018; 85025; 85027; 85379; 85610; 85730; 86850; 86900; 86901; 86920; 93005; 93308; 93321; 93325; 99284; 99406; P9016

== ENCOUNTER 2025-06-30 14:07 | Emergency (ER) | payer OTHER, SELFPAY ==
[2025-06-30 14:10] VITALS: BP 161/85
[2025-06-30 14:34] LABS: Hematocrit 28.6 % (39.0-52.0); Hemoglobin 9.5 g/dL (13.0-18.0); Mean Corp Hgb Conc. 33.2 g/dL (33.0-37.0); Mean Corpuscular Volume 92.6 fL (80.0-94.0); Nucleated Red Blood Cells % 0 % (-); Platelet Count 338 10^3/uL (130-400); Red Cell Dist. Width 14.6 % (11.5-14.5)
[2025-06-30 14:54] LABS: ALT (SGPT) 41 U/L (0-50); AST (SGOT) 25 U/L (17-59); Albumin 4.5 g/dl (3.5-5.0); Alkaline Phosphatase 57 U/L (38-126); Blood Urea Nitrogen 18 mg/dl (9-20); Calcium 9.4 mg/dl (8.4-10.2); Carbon Dioxide 28 mmol/L (22-30); Chloride 105 mmol/L (98-107); Glucose 111 mg/dl (70-99); Potassium 4.0 mmol/L (3.5-5.1); Sodium 141 mmol/L (135-145); Total Protein 7.1 g/dl (6.3-8.2); eGFR > 60.00
--- NOTE | 2025-06-30 17:48 | ED.GENMED ---
History of Present Illness
General
Chief Complaint: Rectal Bleeding
Time Seen by Provider: 06/30/25 17:05
History of Present Illness
History of Present Illness:
64-year-old male presents to the emergency department for evaluation of dark tarry stool. Patient was admitted to this hospital in early May due to an NSTEMI and underwent cardiac stent, was readmitted 1 week later due to chest pain at which time
he was noted to have an acute drop in his hemoglobin. Underwent upper and lower endoscopy with no identifiable source of bleeding. Has been maintained on pantoprazole his cardiac meds including aspirin and Brilinta. Constipated for the past 5
days. Normal soft laxative tea that produced the dark bowel movement. Denies any chest pain or dyspnea currently. Has had dizziness chronically since being hospitalized
Past History
Past History
ED Past Medical History: CAD, HTN and NIDDM
ED Past Surgical History: Cardiac
Patient has exhibited threatening behavior?: No
Social History
Tobacco: Non-smoker
Personal:
Living: with family
Family History
Family History: Other (Noncontributory)
Review of Systems
Review of Systems
Allergies reviewed?: Yes
All Other Systems: ROS reviewed and negative except as documented in HPI and ROS
Phy Exam
Physical Exam
Physical Exam:
GEN: Well appearing, NAD, WDWN
HEENT: Oral mucosa moist, no scleral icterus
Cardiac: Regular rate
Lung: No respiratory distress, no tachypnea
Rectal: Minimal stool in the rectal vault, scant amount of light-colored stool collected heme-negative
MSK: No gross deformity or injuries
Skin: Good color, no pallor or jaundice, no rashes
Neuro: AO x3, moves all extremities freely
Psych: Calm, cooperative
Course
Orders/Labs/Results
Orders:
Orders
06/30/25 14:14
Electrocardiogram (*1) Urgent
Reason for Study: Syncope
06/30/25 14:15
EKG- Treatment ONCE
06/30/25 14:25
Type+Screen Urgent
Complete Blood Count/With Diff Urgent
Comprehensive Metabolic Panel Urgent
Ferritin Urgent
Iron Urgent
Total Iron Binding Urgent
06/30/25 17:58
Add On- LAB Urgent
Tests Added?: iron, TIBC, ferritin
Abnormal Lab Results
06/30/25
14:25
RBC 3.09 L 10^6/uL
(4.70-6.10)
Hgb 9.5 L g/dL
(13.0-18.0)
Hct 28.6 L %
(39.0-52.0)
RDW 14.6 H %
(11.5-14.5)
Monocytes % 9.4 H %
(1.7-9.3)
Glucose 111 H mg/dl
(70-99)
% Saturation 16 L %
(20-50)
06/30/25 14:25
06/30/25 14:25
Vital Signs
Initial and Last Documented VS:
Initial Vital Signs
Temp Pulse Resp BP Pulse Ox
98.0 F 77 16 161/85 98
06/30/25 14:10 06/30/25 14:10 06/30/25 14:10 06/30/25 14:10 06/30/25 14:10
Last Documented Vital Signs
Temp Pulse Resp BP Pulse Ox
98.0 F 91 16 161/85 100
06/30/25 14:10 06/30/25 17:45 06/30/25 17:45 06/30/25 14:10 06/30/25 17:49
MDM/Problems Addressed
MDM/Problems Addressed:
Hemoglobin is stable and Hemoccult is negative. Patient's hemoglobin has fluctuated since last hospital stay between mid nines and upper eights. Will write orders for outpatient hemoglobin to be obtained within the next 24 to 48 hours however to
overall today's upcoming cardiac stenting early next week
*Pulse Oximetry
SaO2: 100
Oxygen Mode of Delivery: Room air
Patient hypoxic: no
*Critical Care Note
Total Time (30-74mins, 75-104mins- exclusive of procedures): Not Applicable
ED Attending Note
-
Portions of this chart may have been created with voice recognition software.� Occasional wrong word or��sound alike� substitutions may have occurred due to the inherent limitations of voice recognition software.
Discharge Plan
Departure
Patient Disposition: Home (Routine Discharge)
Date of Disposition: 06/30/25
Time of Disposition: 17:48
Patient with high blood pressure during this ER visit?: No
Discharge Problem:
Constipation
Instructions: Constipation, Adult (DC)
Prescriptions:
No Action
tramadol 50 mg Tablet
100 mg PO Q6HPRN PRN (Reason: moderate pains)
ezetimibe [Zetia] 10 mg Tablet
10 mg PO DAILY
ticagrelor [Brilinta] 90 mg Tablet
90 mg PO BID Qty: 60 12RF
aspirin 81 mg Tablet,Chewable
81 mg PO DAILY Qty: 1 0RF
rosuvastatin 20 mg Tablet
20 mg PO QPM Qty: 90 5RF
metoprolol succinate 25 mg Tablet Extended Release 24 Hr
12.5 mg PO DAILY Qty: 9 5RF
pantoprazole 40 mg Tablet,Delayed Release (Dr/Ec)
40 mg PO DAILY Qty: 30 0RF
Referrals:
Karan Prescott MD [Family Provider, Family Practice]
Activity Restrictions/Additional Instructions:
Daily Miralax until adequate bowel movement frequency, then once every other day
Interventions
Interventions:
*Risk Screen - Suicide Last Done: 06/30/25 14:10
*General Assessment Last Done: 06/30/25 17:47
*Neglect/Abuse Screening Last Done: 06/30/25 14:10
*ED- Fall Risk Assessment Last Done: 06/30/25 16:37
*ED COVID-19 Vaccine History Last Done: 06/30/25 17:47
*Nursing Disposition Last Done: 06/30/25 18:25
EK-Jpbfvq-Sdexyalwmy Assessment Last Done: 06/30/25 16:37
ED- Cardiac Assessment Last Done: 06/30/25 16:37
ED- Pulmonary Assessment Last Done: 06/30/25 16:37
Discharge Date and Time
Discharge Date/Time: 06/30/25 18:25
Print Language: ALBANIAN
[2025-06-30 18:30] LABS: Iron 66 ug/dl (49-181)
[2025-06-30 18:39] LABS: Total Iron Binding Capacity 397 ug/dl (261-462)
[2025-06-30 19:27] LABS: Ferritin 25.5 ng/ml (17.9-464.0)
== END 2025-06-30 18:25 | disposition home or self-care (01) ==
LOC: EMR 14:07
PROVIDERS: EMERGENCY PHYSICIAN Student in an Organized Health Care Education/Training Program; FAMILY PHYSICIAN Family Medicine
DX: K59.00 Constipation, unspecified (principal); E11.9 Type 2 diabetes mellitus without complications; I25.10 Atherosclerotic heart disease of native coronary artery without angina pectoris; I10 Essential (primary) hypertension; I25.2 Old myocardial infarction; Z79.82 Long term (current) use of aspirin; Z79.01 Long term (current) use of anticoagulants; Z95.5 Presence of coronary angioplasty implant and graft
CPT/HCPCS: 99284; 80053; 82728; 83540; 83550; 85025; 86850; 86900; 86901; 93005

== ENCOUNTER 2025-07-03 06:24 | Day surgery (SDC) | payer OTHER, SELFPAY ==
[2025-07-03] VITALS (20 sets, daily range): BP systolic 103–168; BP diastolic 52–91; BMI 24.6
[2025-07-03] MEDS: NSS 214 ML IV (07:06)
--- NOTE | 2025-07-03 09:05 | ITS.CL.ANGIO ---
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
Angioplasty
Procedure Report:
CARDIAC CATHETERIZATION REPORT
Date of Procedure: 07/03/2025
Referring: Tl Boss D.O.
INDICATION: Staged PCI of RCA after prior ACS PCI of LAD and circumflex.
PROCEDURE:
1. Left heart catheterization.
2. Coronary angiography.
3. Successful PCI of the mid RCA.
4. Successful PCI of the proximal RCA.
A total of 61 minutes of procedural/moderate sedation was utilized. An independent clinical medical assistant was present to assist with and help manage the patient's level of consciousness and physiologic status.
ACCESS:
1. 6 Filipino right radial artery using a modified Seldinger technique.
CATHETERS:
1. 5 Filipino JL 3.5.
2. 6 Filipino JR4 guiding catheter.
HEMODYNAMIC DATA
Weight (kg): 71.2
AO (s/d/x, mmHg): 110/73/89
LV (s/x mmHg): 112/15
LEFT VENTRICULOGRAPHY: Not performed.
CORONARY ANGIOGRAPHY
Dominance: Right.
Left Main: Normal size, bifurcating vessel. There is no coronary artery disease.
LAD: Normal size vessel giving rise to several small diagonals. Patent stents are visible in the mid and distal vessel with no evidence of ISR.
Ramus: Congenitally absent.
Circumflex: Large size, nondominant vessel giving rise to 1 large obtuse marginal before terminating as a left posterolateral arcade. A patent stent is visible in the distal circumflex with no evidence of ISR.
RCA: Large size, dominant vessel with multiple atherosclerotic lesions in the proximal and mid vessel. There is an 80% lesion in the proximal RCA with Po stenotic dilation, followed by a 60% lesion in the proximal RCA. There is an additional
60% lesion in the more proximal RCA followed by an 80% distal mid RCA lesion.
INTERVENTION(S)
1. Successful PCI of the tandem 60% and 80% mid RCA lesions (Medtronic [place]ella [place] 3.0 x 38 KRISS, postdilated with a 3.25 NC balloon) with reduction in stenoses to 0%, maintaining EMILY-3 flow.
2. Successful PCI of the tandem 80% and 60% proximal RCA lesions (Medtronic [place]ella [place] 3.0 x 15 KRISS overlapping with the 3.0 x 38 KRISS, postdilated with a 3.25 NC balloon) with reduction in stenoses to 0%, maintaining EMILY-3 flow.
Narrative:
The decision was made to proceed with percutaneous coronary intervention. The diagnostic catheter was removed over a wire and a 6Fr JR4 guiding catheter was advanced to the aortic root and seated in the right coronary artery. Additional heparin was
given and a Power Turn Flex wire was advanced into the distal RPDA. The tandem 80% and 60% proximal and mid RCA lesions were predilated with a 2.0 x 12 semi-compliant balloon to 12 randy. The semi-compliant balloon was removed and a Medtronic Cesar
[place] 3.0 x 38 drug-eluting stent was advanced into the mid RCA. Meticulous care was taken while positioning the stent, ensuring that the distal stent edge did not compromise the bifurcation of the RCA and RPDA, which originates very high off of
the RCA proper. When we were satisfied with our position, the stent was deployed at 12 atmospheres. The stent balloon was removed. The stent was able to cover much of the diseased vessel, but the proximal RCA disease remained. It is notable that
with full engagement, the JR4 catheter experienced some dampening. A Medtronic [place] 3.0 x 15 drug-eluting stent was advanced. Once again, we took meticulous care positioning the stent, making sure that the stent overlapped with the more
distal stent but was proximal enough to cover the entirety of the proximal RCA lesion. When we were satisfied with our position, the stent was deployed at 12 randy. The stent balloon was withdrawn and the guide was receded in the proximal RCA, this
time without dampening.
A 3.25 x 20 noncompliant balloon was advanced into the stent and the entire stent length was postdilated to 15 atmospheres. Angiography was performed in orthogonal views, confirming good stent expansion and an excellent angiographic result. We did
observe a small, focal stenosis in the RPDA, well outside the stented segment. Nitroglycerin 150 mcg was given intracoronary with complete resolution of the stenosis, confirming wire spasm. The coronary wire was withdrawn and the guide was
disengaged from the artery. The catheter was removed over a standard J-wire.
Closure Device: Vascular band.
Radiation (mGy): 355
DAP (cm2.Gy): 17.0
Fluoroscopy time (minutes): 7.5
CONCLUSIONS
1. Right dominant circulation with patent stents in the mid and distal LAD as well as the distal circumflex with tandem 80% and 60% lesions in the proximal RCA with post stenotic dilation and tandem 60% and 80% lesions in the mid RCA with
poststenotic dilation, status post successful PCI to the proximal and mid RCA (overlapping Medtronic C[place] 3.0 x 38 KRISS, 3.0 x 15 KRISS, postdilated with a 3.25 NC balloon) with reduction in all RCA stenoses to 0%, maintaining EMILY-3 flow.
2. Mildly elevated filling pressures (LVEDP = 15 mmHg at 71.2 kg).
RECOMMENDATIONS:
1. Expectant management after cardiac catheterization via right radial approach.
2. Limited weight bearing on the right wrist for one week.
3. Dual antiplatelet therapy with aspirin and ticagrelor for at least 12 months, followed by aspirin indefinitely. The patient has upcoming noncardiac procedures which require discontinuation of DAPT. This may be entertained in 3 months, but no
sooner.
4. Aggressive secondary prevention with high-dose, high potency statin and ezetimibe. Goal LDL <55.
5. OMT/GDMT as hemodynamics will tolerate.
6. Referral to cardiac rehab has been placed. The patient may begin rehab now that complete revascularization has been achieved.
Copy to: Karan Prescott M.D., Ousmane Valentin M.D.
Tl Boss DO, FACC, FACP
[2025-07-03 09:08] LABS: ACT-LR - POC 314 Seconds (116-155)
[2025-07-03] MEDS: NSS 1000 IV (09:21)
[2025-07-03] MEDS: ULTRAM 100 MG PO (09:43)
[2025-07-03 09:51] LABS: Glucose - Point of Care 114 mg/dl (70-99)
[2025-07-03 13:46] LABS: ACT-LR - POC > 397 Seconds (116-155)
--- NOTE | 2025-07-03 13:47 | W.PN.UPDATE ---
Update Note
Progress Note Update
Pt seen post RCA PCI x2 overlapping KRISS. Right radial cath site without ht/bleeding, non tender. OOB ambulating. Post EKG NSR 60s, no acute changes. Continue DAPT w/asa, brilinta as before, understands importance of uninterrupted DAPT post PCI.
Cardiac rehab consulted. Followup at [facility] as scheduled. Home today if cath site/tele remain stable.
== END 2025-07-03 14:00 | disposition home or self-care (01) ==
LOC: CATH 06:24
PROVIDERS: ATTENDING PHYSICIAN Internal Medicine Cardiovascular Disease; FAMILY PHYSICIAN Family Medicine
DX: I25.10 Atherosclerotic heart disease of native coronary artery without angina pectoris (principal); Z79.02 Long term (current) use of antithrombotics/antiplatelets; Z79.82 Long term (current) use of aspirin; Z87.891 Personal history of nicotine dependence; E11.9 Type 2 diabetes mellitus without complications; I25.2 Old myocardial infarction; Z79.84 Long term (current) use of oral hypoglycemic drugs
CPT/HCPCS: 99152; 99153; 82962; 85347; 93005; C1725; C1874; C1894; C9600

== ENCOUNTER 2025-07-21 13:30 | Outpatient (RCR) | payer OTHER, SELFPAY ==
[2025-07-19 14:25] VITALS: BP 156/90
[2025-07-19] MEDS: VENOFER 110 MG IV (14:35)
[2025-07-19 15:40] VITALS: BP 136/63
[2025-07-21] MEDS: VENOFER 110 MG IV (13:56)
[2025-07-21 14:07] VITALS: BP 150/76
[2025-07-21 15:10] VITALS: BP 135/53
== END 2025-07-21 15:33 | disposition home or self-care (01) ==
LOC: OID 13:30
PROVIDERS: ATTENDING PHYSICIAN Family Medicine
DX: D50.0 Iron deficiency anemia secondary to blood loss (chronic) (principal); A63.0 Anogenital (venereal) warts; I25.10 Atherosclerotic heart disease of native coronary artery without angina pectoris
CPT/HCPCS: 96365; J1756

== ENCOUNTER 2025-08-10 13:25 | Outpatient (RCR) | payer OTHER, SELFPAY ==
[2025-07-26 08:00] VITALS: BP 154/73
[2025-07-26] MEDS: VENOFER 110 MG IV (08:09)
[2025-07-26 09:36] VITALS: BP 152/64
[2025-07-28 13:45] VITALS: BP 146/74
[2025-07-28] MEDS: VENOFER 110 MG IV (13:58)
[2025-08-10 14:02] LABS: Hematocrit 33.5 % (39.0-52.0); Hemoglobin 11.3 g/dL (13.0-18.0); Mean Corp Hgb Conc. 33.7 g/dL (33.0-37.0); Mean Corpuscular Volume 92.8 fL (80.0-94.0); Platelet Count 300 10^3/uL (130-400); Red Cell Dist. Width 13.9 % (11.5-14.5)
[2025-08-10] MEDS: VENOFER 110 MG IV (14:02)
[2025-08-10 14:05] VITALS: BP 135/72
[2025-08-10 15:34] LABS: ALT (SGPT) 46 U/L (0-50); AST (SGOT) 29 U/L (17-59); Albumin 4.4 g/dl (3.5-5.0); Alkaline Phosphatase 63 U/L (38-126); Blood Urea Nitrogen 17 mg/dl (9-20); Calcium 9.2 mg/dl (8.4-10.2); Carbon Dioxide 27 mmol/L (22-30); Chloride 102 mmol/L (98-107); Glucose 113 mg/dl (70-99); HDL Cholesterol 42 mg/dl; Iron 65 ug/dl (49-181); LDL Cholesterol, Calculated 31 mg/dl; Potassium 4.1 mmol/L (3.5-5.1); Sodium 138 mmol/L (135-145); Total Protein 7.1 g/dl (6.3-8.2); Very Low Density Lipoprotein 26 mg/dl (0-30); eGFR > 60.00
[2025-08-10 15:44] LABS: Total Iron Binding Capacity 334 ug/dl (261-462)
[2025-08-10 16:04] LABS: TSH 1.49 uIU/ml (0.47-4.68)
[2025-08-10 16:08] LABS: Ferritin 110.0 ng/ml (17.9-464.0)
== END 2025-08-22 23:59 | disposition home or self-care (01) ==
LOC: OID 13:25
PROVIDERS: Physician Assistant Medical; ATTENDING PHYSICIAN Family Medicine
DX: D50.0 Iron deficiency anemia secondary to blood loss (chronic) (principal); K62.89 Other specified diseases of anus and rectum; A63.0 Anogenital (venereal) warts; I25.10 Atherosclerotic heart disease of native coronary artery without angina pectoris
CPT/HCPCS: 80053; 80061; 82728; 83540; 83550; 84439; 84443; 85025; 96365; J1756

== ENCOUNTER 2025-09-22 17:33 | Outpatient (RCR) | payer OTHER, SELFPAY ==
[2025-08-25 10:53] LABS: Glucose - Point of Care 140 mg/dl (70-99)
[2025-08-25 11:45] LABS: Glucose - Point of Care 101 mg/dl (70-99)
[2025-08-28 17:32] LABS: Glucose - Point of Care 138 mg/dl (70-99)
[2025-08-28 18:14] LABS: Glucose - Point of Care 102 mg/dl (70-99)
[2025-09-01 17:39] LABS: Glucose - Point of Care 121 mg/dl (70-99)
[2025-09-01 18:16] LABS: Glucose - Point of Care 115 mg/dl (70-99)
[2025-09-04 17:36] LABS: Glucose - Point of Care 142 mg/dl (70-99)
[2025-09-04 18:24] LABS: Glucose - Point of Care 89 mg/dl (70-99)
[2025-09-06 17:39] LABS: Glucose - Point of Care 115 mg/dl (70-99)
[2025-09-06 18:19] LABS: Glucose - Point of Care 91 mg/dl (70-99)
[2025-09-08 17:15] LABS: Glucose - Point of Care 141 mg/dl (70-99)
[2025-09-08 18:05] LABS: Glucose - Point of Care 84 mg/dl (70-99)
== END 2025-09-22 23:59 | disposition home or self-care (01) ==
LOC: CRHB 17:33
PROVIDERS: ATTENDING PHYSICIAN Internal Medicine Cardiovascular Disease
DX: I25.2 Old myocardial infarction (principal); Z95.5 Presence of coronary angioplasty implant and graft
CPT/HCPCS: 82962; G0422; G0423

== ENCOUNTER 2025-10-18 16:45 | Outpatient (RCR) | payer OTHER, SELFPAY | END 2025-10-18 23:59 | disposition home or self-care (01) | LOC: CRHB 16:45 | PROVIDERS: ATTENDING PHYSICIAN Internal Medicine Cardiovascular Disease | DX: I25.2 Old myocardial infarction (principal); I21.4 Non-ST elevation (NSTEMI) myocardial infarction (principal); Z95.5 Presence of coronary angioplasty implant and graft | CPT/HCPCS: G0422; G0423 ==

== ENCOUNTER 2025-11-01 17:43 | Outpatient (RCR) | payer OTHER, SELFPAY | END 2025-11-01 23:59 | disposition home or self-care (01) | LOC: CRHB 17:43 | PROVIDERS: ATTENDING PHYSICIAN Internal Medicine Cardiovascular Disease; FAMILY PHYSICIAN Family Medicine | DX: I25.2 Old myocardial infarction (principal); I21.4 Non-ST elevation (NSTEMI) myocardial infarction (principal); Z95.5 Presence of coronary angioplasty implant and graft | CPT/HCPCS: G0422; G0423 ==